=== PATIENT | male | born 1980 | race Caucasian/White ===

== ENCOUNTER 2022-05-15 19:03 | Emergency (ER) | payer MEDICAID ==
[2022-05-15 19:26] VITALS: TEMP 99.2
--- NOTE | 2022-05-15 21:32 | US ---
EXAMINATION TYPE: US venous doppler duplex LE LT DATE OF EXAM: 05/15/2022 8:01 PM COMPARISON: NONE CLINICAL HISTORY: redness swelling. Rash and redness to lateral left calf. Pt states there is no pain . No hx of DVT SIDE PERFORMED: Left TECHNIQUE: The lower extremity deep venous system is examined utilizing real time linear array sonog saul with graded compression, doppler sonography and color-flow sonography. VESSELS IMAGED: Common Femoral Vein Deep Femoral Vein Greater Saphenous Vein * Femoral Vein Popliteal Vein Small Saphenous Vein * Proximal Calf Veins (* superficial vessels) Left Leg: Negative for DVT IMPRESSION: No sign of deep vein thrombosis in the left leg.
[2022-05-15] MEDS ORDERED: cefTRIAXone 1,000 MG VIAL (IM USE) IM STA (21:41)
--- NOTE | 2022-05-15 21:44 | ED ---
Extremity Problem HPI - General Chief complaint: Extremity Problem,Nontraumatic Stated complaint: rash left leg Time Seen by Provider: 05/15/22 19:55 Source: patient Mode of arrival: ambulatory Limitations: no limitations - History of Present Illness Initial comments: Patient is a 41-year-old male who presents to the emergency department for swelling and redness of his left leg. He was sent from urgent care. The symptoms started a month ago and have been worsening. Patient reports redness over his left lower leg which has been experiencing over the past month. He reports minimal pain. It is not itchy/ He does not recall any bug bites or scratches. No injury. He denies fever, chills, nausea, vomiting. Denies history of DVT and PE. Patient does work for [employer] which requires a lot of driving on a daily basis. He is also a tobacco user. Denies hormone replacement, airplane travel, surgical interventions, known cancers, family history of clotting. - Related Data Previous Rx's Medication Instructions Recorded Cephalexin [Keflex] 500 mg PO Q6HR #40 cap 05/15/22 Allergies Allergy/AdvReac Type Severity Reaction Status Date / Time No Known Allergies Allergy Verified 05/15/22 19:26 Review of Systems ROS Statement: Those systems with pertinent positive or pertinent negative responses have been documented in the HPI. ROS Other: All systems not noted in ROS Statement are negative. Past Medical History Past Medical History: No Reported History History of Any Multi-Drug Resistant Organisms: None Reported Past Surgical History: No Surgical Hx Reported Past Psychological History: No Psychological Hx Reported Smoking Status: Current every day smoker Past Alcohol Use History: None Reported Past Drug Use History: Marijuana General Exam Limitations: no limitations General appearance: alert, in no apparent distress Head exam: Present: atraumatic, normocephalic, normal inspection Respiratory exam: Present: normal lung sounds bilaterally. Absent: respiratory distress, wheezes, rales, rhonchi, stridor Cardiovascular Exam: Present: regular rate, normal rhythm, normal heart sounds. Absent: systolic murmur, diastolic murmur, rubs, gallop, clicks Extremities exam: Present: full ROM, normal capillary refill, other (Erythema, warmth, and blanching over the left lateral leg just distal to knee and proximal to ankle. Full range of motion. Neurovascular intact). Absent: calf tenderness Course Vital Signs 05/15/22 05/15/22 19:22 21:00 Temperature 99.2 F Pulse Rate 100 76 Respiratory 20 18 Rate Blood Pressure 164/102 131/84 O2 Sat by Pulse 98 99 Oximetry Medical Decision Making - Medical Decision Making Was pt. sent in by a medical professional or institution ([facility], [facility], urgent care, hospital, or group home...) When possible be specific @ -[No] Did you speak to anyone other than the patient for history (EMS, parent, family, police, friend...)? What history was obtained from this source @ -[No] Did you review nursing and triage notes (agree or disagree)? Why? @ -[I reviewed and agree with nursing and triage notes] Were old charts reviewed (outside hosp., previous admission, EMS record, old EKG, old radiological studies, urgent care reports/EKG's, group home records)? Report findings @ -[No old charts were reviewed] Differential Diagnosis (chest pain, altered mental status, abdominal pain women, abdominal pain men, vaginal bleeding, weakness, fever, dyspnea, syncope, headache, dizziness, GI bleed, back pain, seizure, CVA, palpatations, mental health)? @ -DVT, cellulitis, contact dermatitis EKG interpreted by me (3pts min.). @ -[As above] X-rays interpreted by me (1pt min.). @ -[None done] CT interpreted by me (1pt min.). @ -[None done] U/S interpreted by me (1pt. min.). @ -No. Ultrasound report is negative for DVT. What testing was considered but not performed or refused? (CT, X-rays, U/S, labs)? Why? @ -[None] What meds were considered but not given or refused? Why? @ -Considered pain medication however patient does not want them. Did you discuss the management of the patient with other professionals (chris severino i.e. [facility]ters, [facility], lab, RT, psych nurse, licensed social worker, client project coordinator, teacher, activities officer, case finishing machine adjuster)? Give summary @ -[No] Was smoking cessation discussed for >3mins.? @ -I discussed smoking cessation for greater than 3 minutes. The risk of smoking were discussed with the patient including but not limited to risks of cancer, stroke, coronary artery disease and COPD. Also discussed with patient were multiple methods of quitting smoking. Lastly we discussed the financial cost of smoking. Was critical care preformed (if so, how long)? @ -[No] Were there social determinants of health that impacted care today? How? (Homelessness, low income, unemployed, alcoholism, drug addiction, transportation, low edu. Level, literacy, decrease access to med. care, fdc, rehab)? @ -[No] Was there de-escalation of care discussed even if they declined (Discuss DNR or withdrawal of care, Hospice)? DNR status @ -[No] What co-morbidities impacted this encounter? (DM, HTN, Smoking, COPD, CAD, Cancer, CVA, ARF, Chemo, Hep., AIDS, mental health diagnosis, sleep apnea, morbid obesity)? @ -[None] Was patient admitted / discharged? Hospital course, mention meds given and ro apache, prescriptions, significant lab abnormalities, going to OR and other pertinent info. @ -Patient presenting with erythema and swelling of left leg. Physical exam consistent with cellulitis. There is no fluctuance or drainable abscess. No systemic symptoms. Minimal pain. Ultrasound negative for DVT. Patient will be treated for cellulitis. Rocephin given in the emergency department. Patient will be discharged with Keflex and strict return parameters were discussed. Undiagnosed new problem with uncertain prognosis? @ -[No] Drug Therapy requiring intensive monitoring for toxicity (Heparin, Nitro, Insulin, Cardizem)? @ -[No] Were any procedures done? @ -[No] Diagnosis/symptom? @ -cellulitis LLE Acute, or Chronic, or Acute on Chronic? @ -acute Uncomplicated (without systemic symptoms) or Complicated (systemic symptoms)? @ -uncomplicated Side effects of treatment? @ -[No] Exacerbation, Progression, or Severe Exacerbation? @ -[No] Poses a threat to life or bodily function? How? (Chest pain, [place], [place], pneumonia, PE, COPD, DKA, ARF, appy, cholecystitis, CVA, Diverticulitis, Homicidal, Suicidal, threat to staff... and all critical care pts) @ -[No] Dr. Marti is my attending Disposition Clinical Impression: Cellulitis of left lower extremity Disposition: HOME SELF-CARE Condition: Good Instructions (If sedation given, give patient instructions): Cellulitis (ED) Additional Instructions: Take medication as directed. Follow-up with primary care provider in one to 2 days. Return to the emergency department if you experience new, concerning, or worsening symptoms. Prescriptions: Cephalexin [Keflex] 500 mg PO Q6HR #40 cap Is patient prescribed a controlled substance at d/c from ED?: No Referrals: Arlyn Parra DO [Primary Care Provider] - 1-2 days
[2022-05-15 21:47] VITALS: BP 131/84; PULSE 76; RESP 18
== END 2022-05-15 22:01 | disposition home or self-care (01) ==
LOC: EC 19:03
DX: L03.116 Cellulitis of left lower limb (principal); F12.90 Cannabis use, unspecified, uncomplicated; F17.200 Nicotine dependence, unspecified, uncomplicated
CPT/HCPCS: 93971; 99283; 96372; J0696

== ENCOUNTER 2023-02-19 16:48 | Inpatient (IN) | payer MEDICAID ==
--- NOTE | 2023-02-19 17:28 | ED ---
Chest Pain HPI - General Source: patient Mode of arrival: wheelchair Limitations: no limitations <Milo Mcclain - Last Filed: 02/19/23 17:31> <Malik Kaur - Last Filed: 02/19/23 20:02> - General Chief Complaint: Chest Pain Stated Complaint: chest pain coughing Time Seen by Provider: 02/19/23 17:28 - History of Present Illness Initial Comments: 42-year-old male presenting to the ED with a chief complaint of cough. Patient states for the past month or so has had cough. Reports intermittently with exertion has pain of his lower chest/upper abdomen on the left side. No dizziness or lightheadedness. No nausea or vomiting. States he saw his PCP for this patient had an abnormal ECG and was advised to present to the ED for further evaluation. Currently denies chest pain or shortness of breath. Currently quitting smoking. (Milo Mcclain) This is a 42-year-old male who has progressive dyspnea with exertion over the past one month. He also reports bilateral lower extremity edema which began over the past 4 days. He has no history of heart failure. No cardiac history. He is a current smoker. He denies chest pain. (Malik Kaur) - Related Data Home Medications Medication Instructions Recorded Confirmed Famotidine [Pepcid] 20 mg PO DAILY 02/19/23 02/19/23 Loratadine [Claritin] 10 mg PO DAILY 02/19/23 02/19/23 Allergies Allergy/AdvReac Type Severity Reaction Status Date / Time No Known Allergies Allergy Verified 02/19/23 18:16 Review of Systems ROS Other: All systems not noted in ROS Statement are negative. <Milo Mcclain - Last Filed: 02/19/23 17:31> ROS Other: All systems not noted in ROS Statement are negative. <Malik Kaur - Last Filed: 02/19/23 20:02> ROS Statement: Those systems with pertinent positive or pertinent negative responses have been documented in the HPI. Past Medical History Past Medical History: No Reported History Additional Past Medical History / Comment(s): hx of cellulitis History of Any Multi-Drug Resistant Organisms: None Reported Past Surgical History: No Surgical Hx Reported Past Psychological History: No Psychological Hx Reported Smoking Status: Current every day smoker Past Alcohol Use History: None Reported Past Drug Use History: Marijuana <Milo Mcclain - Last Filed: 02/19/23 17:31> General Exam Limitations: no limitations <Milo Mcclain - Last Filed: 02/19/23 17:31> General appearance: alert Head exam: Present: atraumatic, normocephalic Eye exam: Present: normal appearance, PERRL ENT exam: Present: normal exam Neck exam: Present: normal inspection. Absent: tenderness Respiratory exam: Present: respiratory distress, rales Cardiovascular Exam: Present: normal rhythm, tachycardia GI/Abdominal exam: Present: soft. Absent: distended, tenderness, guarding Extremities exam: Present: pedal edema (2+) Neurological exam: Present: alert, oriented X3 Psychiatric exam: Present: normal affect Skin exam: Present: warm <Malik Kaur - Last Filed: 02/19/23 20:02> - General Exam Comments Initial Comments: Visual Physical Exam Vital signs reviewed General: Well-appearing, nontoxic, no acute distress. Head: Normocephalic, atraumatic Eyes: PERRLA, EOMI ENT: Airway patent Chest: Nonlabored breathing Skin: No visual rash, normal skin tone Neuro: Alert and oriented 3 Musculoskeletal: No gross abnormalities (Milo Mcclain) Course Vital Signs 02/19/23 02/19/23 02/19/23 17:20 17:48 17:57 Temperature 97.7 F Pulse Rate 119 H 120 H Pulse Rate [ 120 H Protohistorian ] Respiratory 20 20 20 Rate Blood Pressure 122/86 O2 Sat by Pulse 98 99 Oximetry 02/19/23 02/19/23 18:00 18:30 Temperature Pulse Rate 125 H 113 H Pulse Rate [ Protohistorian ] Respiratory 20 20 Rate Blood Pressure O2 Sat by Pulse 99 Oximetry Chest Pain MDM <Milo Mcclain - Last Filed: 02/19/23 17:31> <Malik Kaur - Last Filed: 02/19/23 20:02> - MDM Quicknote portion performed. Signed Milo Mcclain PA-C (Milo Mcclain) Was pt. sent in by a medical professional or institution (Dr. PA, UROLOGIST PHYSICIAN, urgent care, hospital, or halfway...) When possible be specific @ -No Did you speak to anyone other than the patient for history (EMS, parent, family, police, friend...)? What history was obtained from this source @ -No Did you review nursing and triage notes (agree or disagree)? Why? @ -I reviewed and agree with nursing and triage notes Were old charts reviewed (outside hosp., previous admission, EMS record, old EKG, old radiological studies, urgent care reports/EKG's, halfway records)? Report findings @ -No old charts were reviewed Differential Diagnosis (chest pain, altered mental status, abdominal pain women, abdominal pain men, vaginal bleeding, weakness, fever, dyspnea, syncope, headache, dizziness, GI bleed, back pain, seizure, CVA, palpatations, mental health, musculoskeletal)? @ -[Differential Dyspnea: Coronary syndrome, arrhythmia, tamponade, asthma, COPD, pulmonary embolism, pneumonia, pneumothorax, pulmonary effusion, anaphylaxis, diabetic ketoacidosis, flailed chest, pulmonary contusion, diaphragmatic rupture, anemia, neuromuscular, this is not meant to be an all-inclusive list. EKG interpreted by me (3pts min.). @EKG, sinus tachycardia rate of 121, left bundle branch block IA interval 136, QRS duration 163, QTC 429, no old for comparison. X-rays interpreted by me (1pt min.). @ -Chest x-ray showing cardiomegaly and pulmonary edema. With effusion. CT interpreted by me (1pt min.). @ -None done U/S interpreted by me (1pt. min.). @ -None done What testing was considered but not performed or refused? (CT, X-rays, U/S, labs)? Why? @ -None What meds were considered but not given or refused? Why? @ -None Did you discuss the management of the patient with other professionals (professionals i.e. , PA, UROLOGIST PHYSICIAN, lab, RT, psych nurse, social service coordinator, teacher dramatics, teacher, air intelligence officer, shoe caser)? Give summary @ -No Was smoking cessation discussed for >3mins.? @ -No Was critical care preformed (if so, how long)? @ -yes, 35 min Were there social determinants of health that impacted care today? How? ( Homelessness, low income, unemployed, alcoholism, drug addiction, transportation, low edu. Level, literacy, decrease access to med. care, longterm, rehab)? @ -Current smoker Was there de-escalation of care discussed even if they declined (Discuss DNR or withdrawal of care, Hospice)? DNR status @ -No What co-morbidities impacted this encounter? (DM, HTN, Smoking, COPD, CAD, Cancer, CVA, ARF, Chemo, Hep., AIDS, mental health diagnosis, sleep apnea, morbid obesity)? @ -None Was patient admitted / discharged? Hospital course, mention meds given and route, prescriptions, significant lab abnormalities, going to OR and other pertinent info. @ -42-year-old male with progressive exertional dyspnea over the past one month and bilateral lower extremity edema. Patient is tachycardic in a left bundle branch block which the patient has no reported history of but he has never had an EKG before. He denies central chest pain. Chest x-ray shows cardiomegaly with new CHF. His BNP is 12,000. Troponin negative. Patient has a positive d- dimer and CT angiography is ordered in the emergency department which is positive for acute PE and CHF. There is also concern for infiltrate and get in the elevated white blood cell count the patient is started on antibiotics in add ition to treatment for CHF and pulmonary embolism. Patient will require echo, consultation with cardiology and pulmonology. He will be admitted to stepdown unit. Case discussed with Kim sanchez for [facility] Undiagnosed new problem with uncertain prognosis? @ -No Drug Therapy requiring intensive monitoring for toxicity (Heparin, Nitro, Insulin, Cardizem)? @ -No Were any procedures done? @ -No Diagnosis/symptom? @ -New-onset CHF, pulmonary embolism Acute, or Chronic, or Acute on Chronic? @ -Acute Uncomplicated (without systemic symptoms) or Complicated (systemic symptoms)? @ -[Complicated Side effects of treatment? @ -No Exacerbation, Progression, or Severe Exacerbation? @ -No Poses a threat to life or bodily function? How? (Chest pain, [place], [place], pneumonia, PE, COPD, DKA, ARF, appy, cholecystitis, CVA, Diverticulitis, Homicidal, Suicidal, threat to staff... and all critical care pts) @Yes, CHF, pulmonary embolism (Malik Kaur) Critical Care Time Critical Care Time: Yes Total Critical Care Time: 35 <Malik Kaur - Last Filed: 02/19/23 20:02> Disposition <Milo Mcclain - Last Filed: 02/19/23 17:31> Is patient prescribed a controlled substance at d/c from ED?: No Time of Disposition: 20:02 <Malik Kaur - Last Filed: 02/19/23 20:02> Clinical Impression: CHF (congestive heart failure), Pulmonary embolism Disposition: ADMITTED IP TO THIS HOSP Condition: Serious Referrals: Arlyn Parra DO [Primary Care Provider] - 1-2 days
[2023-02-19 18:17] LABS: Basophils # (A) 0.1 k/uL (0-0.2); Basophils % (A) 0 %; Eosinophils # (A) 0.1 k/uL (0-0.7); Eosinophils % (A) 1 %; HCT 49.4 % (39.0-53.0); HGB 15.8 gm/dL (13.0-17.5); Lymphocytes # (A) 2.3 k/uL (1.0-4.8); Lymphocytes % (A) 17 %; MCH 30.9 pg (25.0-35.0); MCHC 32.1 g/dL (31.0-37.0); MCV 96.5 fL (80.0-100.0); Mean Platelet Volume 7.7; Monocytes # (A) 0.6 k/uL (0-1.0); Monocytes % (A) 4 %; Neutrophils # (A) 10.6 k/uL (1.3-7.7); Neutrophils % (A) 76 %; Platelet Count 371 k/uL (150-450); RBC 5.12 m/uL (4.30-5.90); WBC 13.9 k/uL (3.8-10.6)
[2023-02-19 18:28] LABS: INR 1.2 (<1.2)
[2023-02-19 18:29] LABS: Prothrombin Time 12.8 sec (10.0-12.5)
[2023-02-19 18:34] LABS: ALT 173 U/L (4-49); AST 85 U/L (17-59); African American GFR (CKD) >90 (>60 ml/min/1.73 sqM); Albumin 3.2 g/dL (3.5-5.0); Alkaline Phosphatase 118 U/L (38-126); Anion Gap 10 mmol/L; Blood Urea Nitrogen 14 mg/dL (9-20); Calcium 8.8 mg/dL (8.4-10.2); Carbon Dioxide 23 mmol/L (22-30); Chloride 99 mmol/L (98-107); Glucose 124 mg/dL (74-99); Magnesium 2.1 mg/dL (1.6-2.3); Non-African American GFR(CKD) >90 (>60 ml/min/1.73 sqM); Potassium 4.3 mmol/L (3.5-5.1); Sodium 132 mmol/L (137-145); Total Bilirubin 1.5 mg/dL (0.2-1.3)
[2023-02-19 18:42] LABS: NT-Pro-B-Type Natriuretic Pept 11900 pg/mL
--- NOTE | 2023-02-19 18:44 | XR ---
EXAMINATION TYPE: XR chest 2V DATE OF EXAM: 02/19/2023 COMPARISON: None INDICATION: Chest pain short of breath TECHNIQUE: Frontal and lateral views of the chest are obtained. FINDINGS: The heart size is enlarged. The pulmonary vasculature is upper limits for normal. Minimal infiltrate may be at the left base. Correlate for atelectasis. Consider atypical pulmonary ed charlie. IMPRESSION: 1. Cardiomegaly with some mild prominence of the pulmonary vascular markings. Correlate for congestiv e heart failure and volume overload.
[2023-02-19] MEDS ORDERED: FUROSEMIDE 10 MG/ML 4 ML VIAL IV STA (18:56)
--- NOTE | 2023-02-19 19:38 | CT ---
EXAMINATION TYPE: CT angio chest CT DLP: 460.2 mGycm, Automated exposure control for dose reduction was used. DATE OF EXAM: 02/19/2023 7:02 PM COMPARISON: None. CLINICAL INDICATION:Male, 42 years old with history of EMMANUEL/POs dimer; chest pain, swollen legs- posit golden dimer TECHNIQUE/CONTRAST: CTA scan of the thorax is performed with IV Contrast, patient injected with 100 mL of Isovue 370, MIP images are created and reviewed these are created on a separate workstation.. FINDINGS: Pulmonary Artery: Main, right and left pulmonary arteries enhance normally. Main pulmonary artery is mildly enlarged at 3.1 cm. No large central/saddle embolus. On the right, the upper and middle lobe a rteries and distal branches show no definite filling defects. Right lower lobe artery is patent. With in anterior basal segmental branch of the right lower lobe, there is a filling defect compatible with acute embolus. On the left, no clear evidence of filling defects however there is some limitation in evaluation of the smaller peripheral branches due to the lung opacities. Heart: Heart appears moderately enlarged with four-chamber enlargement. No pericardial effusion. Vasculature: Aorta appears normal in course and caliber however not well assessed by the phase of con trast. Mediastinum: Enlarged right hilar node with short axis of 1.8 cm. Mildly enlarged left hilar node wit h a short axis of 0.9 cm. Enlarged subcarinal node with a short axis of 1.5 cm. Other borderline enla rged and nonenlarged mediastinal nodes are also seen. There is nonmass-like soft tissue in the anteri or mediastinum, likely residual or reactivated thymic tissue. Airway: Central airways are patent. Lower neck: No significant findings. Soft Tissues: Mild bilateral gynecomastia. Lungs/Pleura: Mild upper lobe emphysematous changes. Moderate left pleural effusion. Left lower lobe consolidative and groundglass opacities, likely combination of edema, atelectasis and infectious infi ltrate. A more focal subpleural consolidative opacity in the lateral left lower lobe measures 2.1 cm image 84. Right upper and middle lobes show no discrete consolidation. Right lower lobe posterolatera lly inferiorly shows an area of peripheral subpleural consolidation which is somewhat rounded in conf iguration and contains an air bronchogram, measuring about 2.7 cm in size, image 158. There is some s urrounding groundglass attenuation. Small infiltrate or atelectasis in the posterior right lower lobe . No sizable right pleural effusion. No visualized pneumothorax. Musculoskeletal: No definite acute bony abnormality. Mild degenerative changes of the thoracic spine. Upper Abdomen: Scarcely included, with no significant findings demonstrated.. IMPRESSION: 1. No large central/saddle embolus. Mildly prominent main pulmonary artery, can be seen with pulmona ry hypertension. 2. Positive for segmental pulmonary embolus in an anterior basal branch of the right lower lobe kong ry. 3. Consolidative opacity in the peripheral right lower lobe, may represent infarct or infectious pro cess. Neoplasm considered less likely. 4. Infiltrates and consolidations in the left lower lobe, likely edema and atelectasis combined with infectious process. 5. Moderate left pleural effusion. 6. Moderate cardiomegaly with four-chamber enlargement.
[2023-02-19] MEDS ORDERED: HEPARIN SODIUM 1,000 UN/ML (10ML VL) IV PRN (19:45)
[2023-02-19] MEDS ORDERED: HEPARIN SODIUM 1,000 UN/ML (10ML VL) IV ONE (19:45)
[2023-02-19] MEDS ORDERED: ASPIRIN 325 MG TAB PO STA (19:46)
[2023-02-19] MEDS ORDERED: AZITHROMYCIN 500 MG in SODIUM CHLORIDE 0.9% 250 ML IVPB STA (19:49)
[2023-02-19] MEDS: HEPARIN SOD,PORK IN 0.45% NACL 25,000 UNIT in 0.45% NACL 1 250ML.BAG IV SCH (19:55)
[2023-02-19] MEDS ORDERED: NALOXONE 0.4 MG/ML 1 ML VIAL IV PRN (19:56)
[2023-02-19] MEDS ORDERED: ACETAMINOPHEN TAB 325 MG TAB PO PRN (19:56)
[2023-02-19 21:24] LABS: Appearance,Urine Clear (Clear); Bilirubin,Urine Negative (Negative); Blood,Urine Negative (Negative); Color,Urine Colorless; Glucose,Urine (UA) Negative (Negative); Ketones,Urine Negative (Negative); Leukocyte Esterase,Urine Negative (Negative); Nitrite,Urine Negative (Negative); Protein,Urine Negative (Negative); Specific Gravity,Urine 1.013 (1.001-1.035); Urobilinogen,Urine <2.0 mg/dL (<2.0)
[2023-02-19] MEDS: FUROSEMIDE 10 MG/ML 2 ML VIAL IV SCH (21:43)
[2023-02-20] MEDS: HEPARIN SOD,PORK IN 0.45% NACL 25,000 UNIT in 0.45% NACL 1 250ML.BAG IV SCH ×2 (06:40→19:56)
--- NOTE | 2023-02-20 06:41 | P.CNPUL ---
History of Present Illness Consult date: 02/20/23 Requesting physician: Malik Kaur Reason for consult: dyspnea, pulmonary embolism Chief complaint: Exertional shortness of breath and left-sided chest pain History of present illness: I am seeing this patient in new consultation today 02/20/2023 after presented yesterday evening with progressively worsening exertional shortness of breath over the last month or so and exertional left-sided chest pain. Patient is a 42-year-old white male with limited past medical history. He does have chronic ongoing tobacco dependence, smoking approximately 1 pack per day. Patient states that over the last 4-6 weeks he has been short of breath with exertion. He feels this started after being exposed to a propane leak at work. The shortness of breath progressively worsened. He also admits bilateral lower extremity swelling over the last 3-5 days. He's had left lateral chest pain that worsens with exertion and improves with rest. He did go to his primary care provider, a nurse practitioner out of Dr. Carlson's office, who directed him to the emergency room yesterday evening. Chest x-ray was consistent with congestive heart failure. A follow-up chest CTA was positive for a segmental pulmonary embolism in the anterior basal branch of the right lower lobe. No central pulmonary embolism. Moderate cardiomegaly. There are enlarged mediastinal/hilar lymph nodes measuring up to 1.8 cm. There is a circular consolidative opacity in the peripheral right lower lobe with air bronchogram, which could represent infarct or infectious process. On the left, there is a moderate sized left pleural effusion and associated atelectasis. Possible superimposed infectious infiltrate involving the left lower lobe. Patient is currently lying in bed, on room air, in no acute distress. Denies infectious symptoms such as fever/chills, productive cough, hemoptysis. Does admit occasional dry cough. Patient denies any current chest pain. Previously described chest pain was localized to the left lateral chest and worsened with exertion. Denies any right-sided chest pain. Denies any personal or familial history of pulmonary embolism. Denies any prolonged travel, trauma, recent surgery. He does have significant bilateral lower extremity edema. Venous Doppler of the left lower extremity negative. High intensity heparin is currently infusing per protocol. Most recent PTT is slightly supratherapeutic. Troponins mildly elevated at 0.042 and 0.044. EKG on arrival showed sinus tachyc ardia with a left bundle branch block. No prior EKG for comparison. NT proBNP was elevated at 11,900. Patient started on Lasix 20 mg twice a day. Patient states that he is urinating often. BMP unremarkable. CBC shows some mild leukocytosis with a WBC count of 13.9, hemoglobin 15.8, hematocrit 49.4 platelets 371. Afebrile. Empirically started on antibiotics. Influenza, RSV, COVID-19 negative. Patient remains slightly tachycardic. Vital signs are stable. Review of Systems REVIEW OF SYSTEMS: CONSTITUTIONAL: Denies any recent significant weight loss or weight gain. EYES: Denies change in vision. EARS, NOSE, MOUTH, THROAT: Denies headaches, denies sore throat. CARDIOVASCULAR: Denies palpitations or syncopal episodes. Admits exertional l eft-sided chest pain and increased lower extremity swelling RESPIRATORY: See HPI GASTROINTESTINAL: Denies change in appetite, abdominal pain, nausea and vomiting, or diarrhea GENITOURINARY: Denies hematuria, denies infections. MUSKULOSKELETAL: Denies pain, denies swelling. INTEGUMENTARY: Denies rash, denies eczema. NEUROLOGICAL: Denies recent memory loss, no recent seizure activity. PSYCHIATRIC: Denies anxiety, denies depression. HEMATOLOGIC/LYMPHATIC: Denies anemia, denies enlarged lymph node Past Medical History Past Medical History: No Reported History Additional Past Medical History / Comment(s): hx of cellulitis History of Any Multi-Drug Resistant Organisms: None Reported Past Surgical History: No Surgical Hx Reported Past Anesthesia/Blood Transfusion Reactions: No Reported Reaction Additional Past Anesthesia/Blood Transfusion Reaction / Comment(s): No hx of anesthesia use Past Psychological History: No Psychological Hx Reported Smoking Status: Current every day smoker Past Alcohol Use History: Occasional Additional Past Alcohol Use History / Comment(s): Pt states drinking is social. Past Drug Use History: Marijuana Medications and Allergies Home Medications Medication Instructions Recorded Confirmed Type Famotidine [Pepcid] 20 mg PO DAILY 02/19/23 02/19/23 History Loratadine [Claritin] 10 mg PO DAILY 02/19/23 02/19/23 History Allergies Allergy/AdvReac Type Severity Reaction Status Date / Time No Known Allergies Allergy Verified 02/19/23 18:16 Physical Exam Vitals: Vital Signs Temp Pulse Pulse Resp BP BP Pulse Ox 02/20/23 01:13 102 H 16 02/20/23 00:00 102 H 16 103/70 98 02/19/23 21:30 98.1 F 107 H 18 115/83 99 02/19/23 21:00 106 H 25 H 116/80 98 02/19/23 20:30 112 H 22 98 02/19/23 20:00 117 H 98 02/19/23 19:30 116 H 23 99 02/19/23 19:00 120 H 99 02/19/23 18:30 113 H 20 99 02/19/23 18:00 125 H 20 02/19/23 17:57 120 H 20 02/19/23 17:48 120 H 20 99 02/19/23 17:20 97.7 F 119 H 20 122/86 98 Intake and Output 02/19/23 02/19/23 02/20/23 14:59 22:59 06:59 Intake Total 113.282 Output Total 1000 Balance -1000 113.282 Intake: Intake, IV Titration 113.282 Amount Heparin Sod,Pork in 0.45% 113.282 NaCl 25,000 unit In 0.45 % NaCl 1 250ml.bag @ 18 UNITS/KG/HR 18.37 mls/hr IV .[id number] [facility] Rx#: [id number] Output: Urine 1000 Other: Voiding Method Urinal Weight 102.058 kg GENERAL EXAM: Alert, 42-year-old white male, comfortable in no apparent distress. HEAD: Normocephalic and atraumatic EYES: Normal reaction of pupils, equal size. NOSE: Clear with pink turbinates. THROAT: No erythema or exudates. NECK: No masses, no JVD. CHEST: No chest wall deformity. LUNGS: Equal air entry with bibasilar inspiratory crackles. On room air.. No conversational dyspnea or accessory muscle use.. CVS: S1 and S2 normal with no audible murmur, regular rhythm. No extra heart sounds ABDOMEN: No hepatosplenomegaly, active bowel sounds, no guarding or rigidity. SPINE: No scoliosis or deformity SKIN: No rashes CENTRAL NERVOUS SYSTEM: No focal deficits, tone is normal in all 4 extremities. EXTREMITIES: There is 3+ bilateral lower extremity pitting edema. No clubbing, or cyanosis. Peripheral pulses are intact. Results - Laboratory Findings CBC and BMP: 02/19/23 17:44 02/19/23 17:44 PT/INR, D-dimer PT 12.8 sec (10.0-12.5) H 02/19/23 17:44 INR 1.2 (<1.2) H 02/19/23 17:44 D-Dimer 2.32 mg/L FEU (<0.60) H 02/19/23 17:44 Abnormal lab findings: Abnormal Labs 02/19/23 02/19/23 02/19/23 17:44 17:44 17:44 WBC 13.9 H Neutrophils # 10.6 H PT 12.8 H INR 1.2 H APTT D-Dimer 2.32 H Sodium 132 L Glucose 124 H Total Bilirubin 1.5 H AST 85 H ALT 173 H Troponin I Total Protein 6.0 L Albumin 3.2 L 02/19/23 02/20/23 02/20/23 20:40 01:31 01:31 WBC Neutrophils # PT INR APTT 83.3 H D-Dimer Sodium Glucose Total Bilirubin AST ALT Troponin I 0.042 H* 0.044 H* Total Protein Albumin - Diagnostic Findings Chest x-ray: image reviewed CT scan - chest: image reviewed Assessment and Plan Assessment: Acute dyspnea, likely multifactorial, related to a combination of congestive heart failure, unknown type, and right segmental pulmonary embolism. Pulmonary embolism appears unprovoked. Underlying infectious process is not excluded. Moderate left pleural effusion, with associated atelectasis vs infectious infiltrate Elevated troponins, rule out non-ST elevation NM Left bundle branch block, no prior ECG for comparison Leukocytosis Chronic ongoing tobacco dependence, smokes approximately 1 pack per day Plan: Patient's medications, labs, imaging reviewed Currently on room air and hemodynamically stable. Patient has been started on high intensity heparin per protocol. No obvious provocative cause of pulmonary embolism, would likely require lifelong anticoagulation. Echocardiogram is pending. Currently receiving Lasix 20 mg twice a day. Gamaliel t reports adequate diuresis. Patient is covered empirically on antibiotics. Procalcitonin level pending. Negative for influenza, RSV, COVID-19 Smoking cessation counseling performed We will continue to follow, and further recommendations are forthcoming I have personally seen and examined the patient, performed the documentation and the assessment and plan as written. Number of minutes spent on the visit:20 Time with Patient: Greater than 30
[2023-02-20 08:14] LABS: Basophils # (A) 0.1 k/uL (0-0.2); Basophils % (A) 1 %; Eosinophils # (A) 0.1 k/uL (0-0.7); Eosinophils % (A) 1 %; HCT 43.6 % (39.0-53.0); HGB 14.4 gm/dL (13.0-17.5); Lymphocytes # (A) 2.1 k/uL (1.0-4.8); Lymphocytes % (A) 19 %; MCH 31.6 pg (25.0-35.0); MCV 95.7 fL (80.0-100.0); Mean Platelet Volume 7.3; Monocytes # (A) 0.6 k/uL (0-1.0); Monocytes % (A) 5 %; Neutrophils % (A) 73 %; Platelet Count 308 k/uL (150-450); RBC 4.56 m/uL (4.30-5.90); WBC 11.1 k/uL (3.8-10.6)
[2023-02-20] MEDS: FAMOTIDINE 20 MG TAB PO SCH (09:40)
[2023-02-20] MEDS: LORATADINE 10 MG TAB PO SCH (09:40)
[2023-02-20] MEDS: FUROSEMIDE 100 MG in SODIUM CHLORIDE 0.9% 90 ML IV SCH ×2 (09:41→17:32)
[2023-02-20] MEDS: FUROSEMIDE 10 MG/ML 2 ML VIAL IV SCH (10:13)
--- NOTE | 2023-02-20 10:40 | CONS ---
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 He came into the hospital because of difficulty breathing and had significant shortness of breath. There is also a small pulmonary embolism, and he has been placed on heparin. For about 5 weeks or so, he has been having progressively increasing shortness of breath. About 5 weeks ago, he was exposed to some propane gas in a closed room and he feels that was the precipitating factor. He smokes quite heavily and is in the process of quitting smoking. He also drinks about 4 beers a day. At the time of my evaluation, he is comfortable, but indicates to me that mild activity makes him quite short of breath. He does not have any chest discomfort. He also noted some edema of lower extremities as well. CT angiogram suggests that there is a branch pulmonary embolism and also possibly some pulmonary infarction as well. Troponin is mildly elevated from 0.02 to 0.04. PAST MEDICAL HISTORY: Unremarkable for any hypertension, diabetes, myocardial infarction, or CVA. MEDICATIONS: At home, he takes Pepcid and Claritin as needed. ALLERGIES: None. PAST SURGICAL HISTORY: No history of any previous surgeries. PHYSICAL EXAMINATION: VITAL SIGNS: Blood pressure is 106/74, pulse rate is about 100. HEENT: Unremarkable. Fundus was not examined by me. NECK: Supple. There is JVD of at least 1 cm or more. There is no carotid bruit. HEART: Reveals S1, S2 with tachycardia. No significant murmurs. LUNGS: Revealed bilateral fine basal rales. ABDOMEN: Soft, nontender. There is mild hepatomegaly. EXTREMITIES: Lower extremities reveal bilateral 1+ edema. Diminished pulses. CENTRAL NERVOUS SYSTEM: No focal deficits. IMPRESSION: 1. Exacerbation of congestive heart failure, systolic. 2. Branch pulmonary embolism with possible pulmonary infarction. 3. Moderate left-sided pleural effusion. 4. EKG reveals sinus tachycardia with left bundle branch block pattern. 5. Cannot exclude cardiomyopathy with heart failure. 6. Alcoholism, 4 beers a day, no hard liquor. RECOMMENDATIONS: I am recommending that we will diurese him with Lasix, replace him on a small dose of beta blockers after unloading, and also place him on a small dose of losartan if his blood pressure tolerates. Continue heparin for the time being, and based on clinical course, I will make further recommendations. I will speak to his when she comes in next 30 minutes or so. He will also require coronary angiography to rule out etiology for his heart failure. I will review the echo that was performed today. Prognosis remains guarded. I discussed my thoughts in detail with the patient. Thank you very much for the consult. VONNIE / LAMBERT: [id number] /
[2023-02-20] MEDS ORDERED: NITROGLYCERIN SL TABS 0.4 MG TAB SUBLINGUAL PRN (11:41)
[2023-02-20] MEDS ORDERED: ALPRAZolam 0.25 MG TAB PO PRN (11:41)
--- NOTE | 2023-02-20 11:47 | CA ---
Transthoracic Echo Report Name: Munir Espino Age: 42 Gender: M : 1980 Exam Date: 02/20/2023 09:27 Exam Location: [facility] Ht (in): 77 Wt (lb): 225 Ordering Physician: Malik Kaur MD Attending/Referring Phys: [id number], Natasha Field Technical Specialist Procedure CPT: Indications: new CHF Cardiac Hx: Technical Quality: Good Contrast 1: Total Dose (mL): Contrast 2: Total Dose (mL): MEASUREMENTS (Male / Female) Normal Values 2D ECHO LV Diastolic Diameter PLAX 6.9 cm 4.2 - 5.9 / 3.9 - 5.3 cm IVS Diastolic Thickness 1.3 cm 0.6 - 1.0 / 0.6 - 0.9 cm LVPW Diastolic Thickness 1.3 cm 0.6 - 1.0 / 0.6 - 0.9 cm LV Relative Wall Thickness 0.4 RV Internal Dim ED PLAX 5.1 cm LVOT Diameter 2.3 cm Aortic Root Diameter 3.0 cm LA Systolic Diameter LX 3.5 cm 3.0 - 4.0 / 2.7 - 3.8 cm LV Diastolic Volume MOD BP 257.5 cm??? 67 - 155 / 56 - 104 cm??? LV Systolic Volume MOD BP 227.4 cm??? / 19 - 49 cm??? LV Ejection Fraction MOD BP 11.7 % >= 55 % LV Cardiac Index MOD BP 1362.4 cm???/min???m??? LV Diastolic Volume MOD 4C 217.9 cm??? LV Systolic Volume MOD 4C 216.2 cm??? LV Ejection Fraction MOD 4C 0.8 % LV Cardiac Index MOD 4C 79.5 cm???/min???m??? LV Diastolic Length 4C 9.9 cm LV Systolic Length 4C 9.6 cm LV Diastolic Volume MOD 2C 304.6 cm??? LV Systolic Volume MOD 2C 245.6 cm??? LV Ejection Fraction MOD 2C 19.3 % LV Cardiac Index MOD 2C 2667.4 cm???/min???m??? LV Diastolic Length 2C 10.0 cm LV Systolic Length 2C 9.6 cm LA Volume 101.9 cm??? - / 22 - 52 cm??? LA Volume Index 43.1 cm???/m??? 16 - 28 cm???/m??? DOPPLER AV Peak Velocity 110.1 cm/s AV Peak Gradient 4.8 mmHg LVOT Peak Velocity 56.2 cm/s LVOT Peak Gradient 1.3 mmHg LVOT Velocity Time Integral 8.7 cm LVOT Stroke Volume 35.1 cm??? LVOT Stroke Volume Index 14.9 ml/m??? LVOT Cardiac Index 1588.3 cm???/min???m??? AV Area Cont Eq pk 2.1 cm??? MV Peak Velocity 155.5 cm/s MV Peak Gradient 9.7 mmHg MV Mean Velocity 58.1 cm/s MV Mean Gradient 1.9 mmHg MV Velocity Time Integral 33.4 cm MR Peak Velocity 419.5 cm/s MR Peak Gradient 70.4 mmHg Mitral E Point Velocity 112.3 cm/s Mitral A Point Velocity 25.2 cm/s Mitral E to A Ratio 4.5 MV Deceleration Time 194.0 ms MV E' Velocity 3.3 cm/s Mitral E to MV E' Ratio 34.5 TR Peak Velocity 333.0 cm/s TR Peak Gradient 44.4 mmHg Right Ventricular Systolic Press 54.4 mmHg PV Peak Velocity 84.9 cm/s PV Peak Gradient 2.9 mmHg FINDINGS Left Ventricle Mildly increased septal wall thickness. Severely increased left ventricular diastolic diameter. Severely increased left ventricular diastolic volume. Severely increased left ventricular systolic volume. Severely decreased left ventricular ejection fraction. Left ventricular ejection fraction is estimated at 10-15 %. Right Ventricle Moderate right ventricular dilatation. RVSP= 54mmHg. Right Atrium Moderate right atrial dilatation. RA area= 22.6cm2 Left Atrium Severely increased left atrial volume. Moderately increased left atrial area. Mitral Valve Structurally normal mitral valve. Moderate MR. Aortic Valve Trileaflet aortic valve. No aortic valve stenosis or regurgitation. Tricuspid Valve Structurally normal tricuspid valve. Moderate TR. Pulmonic Valve Pulmonic valve not well visualized. Mild PI. Pericardium Normal pericardium. Aorta Normal size aortic root. CONCLUSIONS Dilated left ventricle with severe global hypokinesis Moderate mitral and tricuspid regurgitation with moderate to severe pulmonary hypertension Previewed by: Dr. Leena Richards MD (Electronically Signed) Final Date: 20 February 2023 11:45
--- NOTE | 2023-02-20 12:45 | US ---
EXAMINATION TYPE: US venous doppler duplex LE BI DATE OF EXAM: 02/20/2023 10:42 AM COMPARISON: NONE CLINICAL INDICATION: Male, 42 years old with history of PE, LE edema; Edema, known PE SIDE PERFORMED: Bilateral TECHNIQUE: The lower extremity deep venous system is examined utilizing real time linear array sonog saul with graded compression, doppler sonography and color-flow sonography. VESSELS IMAGED: Common Femoral Vein Deep Femoral Vein Greater Saphenous Vein * Femoral Vein Popliteal Vein Small Saphenous Vein * Proximal Calf Veins (* superficial vessels) Right Leg: Negative for DVT Left Leg: Negative for DVT IMPRESSION: No evidence for DVT within the bilateral lower extremities imaged from the groin to the upper calves.
[2023-02-20] MEDS: SODIUM CHLORIDE 0.9% 1,000 ML IV SCH (17:32)
[2023-02-20] MEDS: carvediloL 3.125 MG TAB PO SCH (17:32)
[2023-02-20] MEDS: LOSARTAN 25 MG TAB PO SCH (19:57)
[2023-02-20] MEDS: ALPRAZolam 0.5 MG TAB PO PRN (19:57)
[2023-02-20] MEDS ORDERED: AZITHROMYCIN 500 MG in SODIUM CHLORIDE 0.9% 250 ML IVPB SCH (20:00)
--- NOTE | 2023-02-20 23:38 | P.HPIM ---
History of Present Illness H&P Date: 02/20/23 Chief Complaint: Shortness of breath Patient is a 42-year-old male with no significant past medical history presents to ER with complaints of chest pain and cough. Patient has been having intermittent chest pain with exertion mainly in the left lower pebbled abdomen on the left side. There is also having shortness of breath along with the pain. Patient has been having this exertional symptoms for the past 4 to 6 weeks and also noticed to have increased leg swelling during the past 3 to 5 days. He was seen by his primary care physician and was noted to have abnormal EKG. Advised the patient to go to ER. Patient has not been on follow-up with PCP recently. He is trying to quit smoking. Chest x-ray showed cardiomegaly with some mild prominence of pulmonary vascular markings. Correlate for CHF and volume overload. CT angiogram of the chest showed no large central/saddle embolus. Positive for segmental PE in the anterior basal branch of the right lower lobe artery. Consolidative opacity in the peripheral lower lobe manage present at infarct infectious process. Moderate left pleural effusion and moderate cardiomegaly with four-chamber enlargement. EKG showed sinus tachycardia and left bundle branch block. Laboratory data showed WBC 13.9 hemoglobin 15.8 and platelets 371 D-dimer 2.32 Sodium 132 potassium 4.3 chloride 99 BUN 14 and creatinine 0.78 and blood sugar is 124 magnesium 2.1 total bili 1.5 AST 85 ALT 173 and alk phos 118 and troponin 0.029, 0.042 and 0.044 proBNP 08073 and albumin 3.2 Urinalysis is negative for infection Influenza A, B, RSV and COVID-19 PCR not detected. Review of Systems Constitutional: Patient denies any fever or chills . no Generalized weakness. Abdomen: Patient denied any nausea or vomiting or abd. pain Cardiovascular: Patient does complain of chest pain and short of breath no palpitations. Positive for leg swelling and Pleuritic chest pain Respiratory: patient does have cough . no sputum production. Positive for shortness of breath Neurologic: Patient denied any numbness or tingling or headache. Musculoskeletal: Patient denies any complaints of joint swelling or deformity. Skin: Negative Psychiatric: Negative Endocrine: No heat or cold intolerance. No recent weight gain. Genitourinary: No dysuria or hematuria. All other 14 point ROS negative except the above Past Medical History Past Medical History: No Reported History Additional Past Medical History / Comment(s): hx of cellulitis History of Any Multi-Drug Resistant Organisms: None Reported Past Surgical History: No Surgical Hx Reported Past Anesthesia/Blood Transfusion Reactions: No Reported Reaction Additional Past Anesthesia/Blood Transfusion Reaction / Comment(s): No hx of anesthesia use Past Psychological History: No Psychological Hx Reported Smoking Status: Current every day smoker Past Alcohol Use History: Occasional Additional Past Alcohol Use History / Comment(s): Pt states drinking is social. Past Drug Use History: Marijuana Medications and Allergies Home Medications Medication Instructions Recorded Confirmed Type Famotidine [Pepcid] 20 mg PO DAILY 02/19/23 02/19/23 History Loratadine [Claritin] 10 mg PO DAILY 02/19/23 02/19/23 History Allergies Allergy/AdvReac Type Severity Reaction Status Date / Time No Known Allergies Allergy Verified 02/19/23 18:16 Physical Exam Vitals: Vital Signs Temp Pulse Pulse Resp BP BP Pulse Ox 02/20/23 08:00 98.2 F 101 H 17 93/67 96 02/20/23 04:00 96 16 106/74 96 02/20/23 01:13 102 H 16 02/20/23 00:00 102 H 16 103/70 98 02/19/23 21:30 98.1 F 107 H 18 115/83 99 02/19/23 21:00 106 H 25 H 116/80 98 02/19/23 20:30 112 H 22 98 02/19/23 20:00 117 H 98 02/19/23 19:30 116 H 23 99 02/19/23 19:00 120 H 99 02/19/23 18:30 113 H 20 99 02/19/23 18:00 125 H 20 02/19/23 17:57 120 H 20 02/19/23 17:48 120 H 20 99 02/19/23 17:20 97.7 F 119 H 20 122/86 98 Intake and Output 02/19/23 02/20/23 02/20/23 22:59 06:59 14:59 Intake Total 188.123 Output Total 1000 700 Balance -1000 -511.877 Intake: Intake, IV Titration 188.123 Amount Heparin Sod,Pork in 0.45% 188.123 NaCl 25,000 unit In 0.45 % NaCl 1 250ml.bag @ 18 UNITS/KG/HR 18.37 mls/hr IV .[id number] [facility] Rx#: [id number] Output: Urine 1000 700 Other: Voiding Method Urinal Weight 102.058 kg 100 kg PHYSICAL EXAMINATION: Patient is lying in the bed comfortably, no acute distress, awake alert and oriented.. HEENT: Normocephalic. Neck is supple. Pupils reactive. Nostrils clear. Oral cavity is moist. Neck reveals no JVD, carotid bruits, or thyromegaly. CHEST EXAMINATION: Trachea is central. Symmetrical expansion. Bibasilar diminished sounds.. CARDIAC: Normal S1, S2 with no gallops. No murmurs ABDOMEN: Soft. Bowel sounds present. Nontender. No organomegaly. No abdominal bruits. Extremities: Bilateral 2+ edema. No clubbing or cyanosis Neurologically awake, alert, oriented x3 with well-coordinated movements. No focal deficits noted Skin: No rash or skin lesions. Psychiatric: Coperative. Nonsuicidal, Musculoskeletal: No joint swelling or deformity. Normal range of motion. Results CBC & Chem 7: 02/20/23 08:02 02/19/23 17:44 Labs: Abnormal Lab Results - Last 24 Hours (Table) 02/19/23 02/19/23 02/19/23 Range/Units 17:44 17:44 17:44 WBC 13.9 H (3.8-10.6) k/uL Neutrophils # 10.6 H (1.3-7.7) k/uL PT 12.8 H (10.0-12.5) sec INR 1.2 H (<1.2) APTT (22.0-30.0) sec D-Dimer 2.32 H (<0.60) mg/L FEU Sodium 132 L (137-145) mmol/L Glucose 124 H (74-99) mg/dL Total Bilirubin 1.5 H (0.2-1.3) mg/dL AST 85 H (17-59) U/L ALT 173 H (4-49) U/L Troponin I (0.000-0.034) ng/mL Total Protein 6.0 L (6.3-8.2) g/dL Albumin 3.2 L (3.5-5.0) g/dL 02/19/23 02/20/2302/20/23 Range/Units 20:40 01:31 01:31 WBC (3.8-10.6) k/uL Neutrophils # (1.3-7.7) k/uL PT (10.0-12.5) sec INR (<1.2) APTT 83.3 H (22.0-30.0) sec D-Dimer (<0.60) mg/L FEU Sodium (137-145) mmol/L Glucose (74-99) mg/dL Total Bilirubin (0.2-1.3) mg/dL AST (17-59) U/L ALT (4-49) U/L Troponin I 0.042 H* 0.044 H* (0.000-0.034) ng/mL Total Protein (6.3-8.2) g/dL Albumin (3.5-5.0) g/dL 02/20/23 02/20/23 Range/Units 08:02 08:02 WBC 11.1 H (3.8-10.6) k/uL Neutrophils # 8.0 H (1.3-7.7) k/uL PT (10.0-12.5) sec INR (<1.2) APTT 55.8 H (22.0-30.0) sec D-Dimer (<0.60) mg/L FEU Sodium (137-145) mmol/L Glucose (74-99) mg/dL Total Bilirubin (0.2-1.3) mg/dL AST (17-59) U/L ALT (4-49) U/L Troponin I (0.000-0.034) ng/mL Total Protein (6.3-8.2) g/dL Albumin (3.5-5.0) g/dL Thrombosis Risk Factor Assmnt - DVT/VTE Prophylaxis DVT/VTE Prophylaxis: Pharmacologic Prophylaxis ordered - Choose All That Apply Any of the Below Risk Factors Present?: Yes Each Factor Represents 1 point: Age 41-60 years, Medical pt on bed rest, Obesity (BMI >25), Swollen legs (current) Each Risk Factor Represents 3 Points: History of DVT/PE Thrombosis Risk Factor Assessment Total Risk Factor Score: 7 Thrombosis Risk Factor Assessment Level: High Risk Assessment and Plan Assessment: Shortness of breath secondary to acute CHF, left pleural effusion and right segmental PE Acute segmental right lower lobe pulm artery PE. Unprovoked. Acute CHF. EF not known. Moderate left pleural effusion with underlying infiltrative process cannot be excluded. Elevated troponin level possible NSTEMI cannot be excluded. Left bundle branch block Ongoing nicotine addiction Alcohol use daily 4 beers GI prophylaxis. Plan: Patient will be continued on telemonitoring. Started on heparin drip. Was given a dose of IV Lasix 40 mg x 1 and currently started on Lasix drip as per cardiology recommendations. Started on aspirin and statins and Coreg and losartan.2D echocardiogram was ordered. Continue pain management. He was given a dose of ceftriaxone and azithromycin. Follow-up procalcitonin level. Pulmonary and cardiology is on board. Continue to follow closely. Time with Patient: Greater than 30
[2023-02-21] MEDS ORDERED: ASPIRIN 325 MG TAB PO ONE (05:00)
[2023-02-21] MEDS ORDERED: ATORVASTATIN 80 MG TAB PO ONE (05:00)
[2023-02-21] MEDS: carvediloL 3.125 MG TAB PO SCH ×2 (05:23→16:41)
[2023-02-21] MEDS: LORATADINE 10 MG TAB PO SCH (06:21)
[2023-02-21] MEDS: FAMOTIDINE 20 MG TAB PO SCH (06:21)
[2023-02-21] MEDS: FUROSEMIDE 100 MG in SODIUM CHLORIDE 0.9% 90 ML IV SCH (06:22)
[2023-02-21] MEDS: HEPARIN SOD,PORK IN 0.45% NACL 25,000 UNIT in 0.45% NACL 1 250ML.BAG IV SCH (06:22)
[2023-02-21] MEDS: SODIUM CHLORIDE 0.9% 1,000 ML IV SCH (06:23)
[2023-02-21] MEDS ORDERED: HEPARIN SODIUM,PORCINE (1 ML) 2,500 UNIT in SODIUM CHLORIDE 0.9% 250 ML IRRIGATION PRN (07:00)
[2023-02-21] MEDS ORDERED: HEPARIN SODIUM,PORCINE 10,000 UNIT in SODIUM CHLORIDE 0.9% 1,000 ML IRRIGATION PRN (07:00)
[2023-02-21 07:02] LABS: African American GFR (CKD) >90 (>60 ml/min/1.73 sqM); Anion Gap 12 mmol/L; Blood Urea Nitrogen 13 mg/dL (9-20); Calcium 8.1 mg/dL (8.4-10.2); Carbon Dioxide 28 mmol/L (22-30); Chloride 92 mmol/L (98-107); Glucose 117 mg/dL (74-99); Magnesium 1.5 mg/dL (1.6-2.3); Non-African American GFR(CKD) >90 (>60 ml/min/1.73 sqM); Sodium 132 mmol/L (137-145)
[2023-02-21 08:05] LABS: Potassium 2.7 mmol/L (3.5-5.1)
[2023-02-21] MEDS ORDERED: Potassium Replacement Protocol 1 EACH MISC MISCELLANE PRN (08:07)
[2023-02-21] MEDS: POTASSIUM CHLORIDE ER 20 MEQ TAB.ER PO SCH ×4 (08:50→20:51)
[2023-02-21] MEDS ORDERED: SODIUM CHLORIDE 0.9% 1,000 ML IV ONE ×2 (10:25)
[2023-02-21] MEDS ORDERED: MIDAZOLAM 2 MG/2 ML VIAL IVP ONE (10:30)
[2023-02-21] MEDS ORDERED: LIDOCAINE 1% INJ 10MG/ML (5 ML VIAL-PF) SQ ONE (10:34)
[2023-02-21] MEDS ORDERED: IOPAMIDOL-370 100ML BTL INJ ONE (11:05)
--- NOTE | 2023-02-21 11:35 | P.PN ---
Subjective Progress Note Date: 02/21/23 Principal diagnosis: Shortness of breath. I am seeing this patient in new consultation today 02/20/2023 after presented yesterday evening with progressively worsening exertional shortness of breath over the last month or so and exertional left-sided chest pain. Patient is a 42-year-old white male with limited past medical history. He does have chronic ongoing tobacco dependence, smoking approximately 1 pack per day. Patient states that over the last 4-6 weeks he has been short of breath with exertion. He feels this started after being exposed to a propane leak at work. The shortness of breath progressively worsened. He also admits bilateral lower extremity swelling over the last 3-5 days. He's had left lateral chest pain that worsens with exertion and improves with rest. He did go to his primary care provider, a nurse practitioner out of Dr. Carlson's office, who directed him to the emergency room yesterday evening. Chest x-ray was consistent with congestive heart failure. A follow-up chest CTA was positive for a segmental pulmonary embolism in the anterior basal branch of the right lower lobe. No central pulmonary embolism. Moderate cardiomegaly. There are enlarged mediastinal/hilar lymph nodes measuring up to 1.8 cm. There is a circular consolidative opacity in the peripheral right lower lobe with air bronchogram, which could represent infarct or infectious process. On the left, there is a moderate sized left pleural effusion and associated atelectasis. Possible superimposed infectious infiltrate involving the left lower lobe. Patient is currently lying in bed, on room air, in no acute distress. Denies infectious symptoms such as fever/chills, productive cough, hemoptysis. Does admit occasional dry cough. Patient denies any current chest pain. Previously described chest pain was localized to the left lateral chest and worsened with exertion. Denies any right-sided chest pain. Denies any personal or familial history of pulmonary embolism. Denies any prolonged travel, trauma, recent surgery. He does have significant bilateral lower extremity edema. Venous Doppler of the left lower extremity negative. High intensity heparin is currently infusing per protocol. Most recent PTT is slightly supratherapeutic. Troponins mildly elevated at 0.042 and 0.044. EKG on arrival showed sinus tachycardia with a left bundle branch block. No prior EKG for comparison. NT proBNP was elevated at 11,900. Patient started on Lasix 20 mg twice a day. Patient states that he is urinating often. BMP unremarkable. CBC shows some mild leukocytosis with a WBC count of 13.9, hemoglobin 15.8, hematocrit 49.4 platelets 371. Afebrile. Empirically started on antibiotics. Influenza, RSV, COVID-19 negative. Patient remains slightly tachycardic. Vital signs are stable. Progress note dated 02/21/2023. 42-year-old male that we saw in consultation, for shortness of breath, and lower extremity edema. The patient on CT angiogram was found to have a small pulmonary embolism, in the right lower lobe. The patient was on IV heparin for that. In addition, an echocardiogram revealed a very low ejection fraction, consistent with cardiomyopathy. The patient is scheduled for cardiac catheterization today. He's currently on room air. Dopplers of the lower extremity were negative. His ejection fraction is estimated to be less than 1 5%. He is getting saline at 50 mL an hour. Laboratory data includes a PTT of 48.2, sodium 132, potassium 2.7, chlorides 92, CO2 28, BUN 13, creatinine 0.81. Calcium is 8.1 with a magnesium of 1.5. Pro-calcitonin level is 0.08. The patient tested negative for influenza A, influenza B, RSV, and coronavirus. Objective - Vital Signs Vital signs: Vital Signs Temp 98.3 F 02/21/23 08:10 Pulse 87 02/21/23 08:10 Resp 17 02/21/23 08:10 BP 102/67 02/21/23 08:10 Pulse Ox 100 02/21/23 08:10 FiO2 Intake & Output 02/20/23 02/21/23 02/21/23 18:59 06:59 18:59 Intake Total 376.5 486.997 122.333 Output Total 1900 4850 Balance -1523.5 -4363.003 122.333 Weight 94 kg Intake: IV 100 Intake, IV Titration 258.5 486.997 22.333 Amount Furosemide 100 mg In 108.5 100 22.333 Sodium Chloride 0.9% 90 ml @ 10 MG/HR 10 mls/hr IV .Q10H [facility] Rx#: [id number] Heparin Sod,Pork in 0.45% 386.997 NaCl 25,000 unit In 0.45 % NaCl 1 250ml.bag @ 18 UNITS/KG/HR 18.37 mls/hr IV .[id number] [facility] Rx#: [id number] Sodium Chloride 0.9% 1, 150 000 ml @ 50 mls/hr IV . Q20H [facility] Rx#:[id number] Oral 118 Output: Urine 1900 4850 Other: Voiding Method Urinal Urinal Urinal # Voids 3 - Exam No acute distress, oriented 3. No respiratory distress. The patient remains on room air. HEENT examination is grossly unremarkable. Mucous membranes are moist. No oral lesions. Neck supple. Full range of motion. No adenopathy thyromegaly or neck vein distention. Cardiovascular examination reveals regular rhythm rate. S1-S2 normal. No S3 or S4. No discernible murmur noted. Heart sounds are distant. Heart rate 87 bpm. Lungs reveal mostly clear breath sounds. Scattered rhonchi. No wheezes or crackles. Room air saturation is 98%. Abdomen soft bowel sounds are heard. No masses or tenderness. Extremities are intact. No cyanosis or clubbing. Trace edema is noted. Skin is without rash or lesion. Neurologic examination is brief but nonfocal. - Labs CBC & Chem 7: 02/20/23 08:02 02/21/23 06:27 Labs: Abnormal Lab Results - Last 24 Hours (Table) 02/21/23 02/21/23 Range/Units 06:27 06:27 APTT 48.2 H (22.0-30.0) sec Sodium 132 L (137-145) mmol/L Potassium 2.7 L* (3.5-5.1) mmol/L Chloride 92 L (98-107) mmol/L Glucose 117 H (74-99) mg/dL Calcium 8.1 L (8.4-10.2) mg/dL Magnesium 1.5 L (1.6-2.3) mg/dL Microbiology - Last 24 Hours (Table) 02/19/23 20:06 Blood Culture - Preliminary Blood 02/19/23 19:50 Blood Culture - Preliminary Blood Assessment and Plan Assessment: Acute dyspnea, likely multifactorial, related to a combination of congestive heart failure, unknown type, and right segmental pulmonary embolism. Pulmonary embolism appears unprovoked. Underlying infectious process is not excluded, but unlikely. Severe cardiomyopathy, with an ejection fraction of less than 15%. Moderate left pleural effusion, with associated atelectasis. Elevated troponins, rule out non-ST elevation [place] Left bundle branch block. Leukocytosis. Chronic ongoing tobacco dependence, smokes approximately 1 pack per day. Plan: Plan dated 02/21/2023. Antibiotics were discontinued, because the patient's pro-calcitonin level was normal. The patient is going for heart catheterization today. Echocardiogram revealed a very low ejection fraction. The patient continues on room air. Labs, x-rays, medications are reviewed. 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 She'll recommendations and suggestions are forthcoming. Prognosis is guarded. Time with Patient: Less than 30
[2023-02-21] MEDS ORDERED: FUROSEMIDE 10 MG/ML 2 ML VIAL IV ONE ×2 (14:00→22:00)
--- NOTE | 2023-02-21 14:24 | P.PN ---
Subjective Progress Note Date: 02/21/23 History of present illness: This is 42-year-old male presented to the hospital due to difficulty breathing shortness of breath found to have small pulmonary embolism and started on heparin drip. He was also found to have significant myopathy with EF of 15%. He underwent cardiac catheterization today that revealed normal coronary arteries. Patient does have a history of smoking and daily alcohol use. Patient has been on IV Lasix gtt and lower extremity edema is better. Patient has had 7 L of urine output. He states his breathing is better today. Physical examination: Gen: This is a 42-year-old male resting bed appears comfortable VS: reviewed HEENT: Head is atraumatic, normocephalic. Pupils equal, round. Sclerae is anicteric. NECK: Supple. No JVD. LUNGS: Diminished. No wheezes or rhonchi. No intercostal retractions. HEART: Regular rate and rhythm. No murmur. ABDOMEN: Soft No tenderness. EXTREMITIES: Minimal pedal edema. No calf tenderness. NEUROLOGICAL: Patient is awake, alert and oriented x3. Assessment: Acute systolic heart failure Branch pulmonary embolism with possible pulmonary infarction Moderate left-sided pleural effusion EKG sinus tachycardia with left bundle branch block pattern Cardiomyopathy of unclear etiology most likely due to alcohol use Daily alcohol use Plan: Continue Lasix drip Transition to oral anticoagulation per pulmonary medicine Patient will require LifeVest at discharge Smoking cessation Strict alcohol cessation Further recommendations to follow based upon clinical course Nurse practitioner note has been reviewed, I agree with documented findings and plan of care. Patient was seen and examined. Objective - Vital Signs Vital signs: Vital Signs Temp 98.3 F 02/21/23 08:10 Pulse 87 02/21/23 08:10 Resp 17 02/21/23 08:10 BP 102/67 02/21/23 08:10 Pulse Ox 100 02/21/23 08:10 FiO2 Intake & Output 02/20/23 02/21/23 02/21/23 18:59 06:59 18:59 Intake Total 376.5 486.997 22.333 Output Total 1900 4850 Balance -1523.5 -4363.003 22.333 Weight 94 kg Intake: Intake, IV Titration 258.5 486.997 22.333 Amount Furosemide 100 mg In 108.5 100 22.333 Sodium Chloride 0.9% 90 ml @ 10 MG/HR 10 mls/hr IV .Q10H [facility] Rx#: [id number] Heparin Sod,Pork in 0.45% 386.997 NaCl 25,000 unit In 0.45 % NaCl 1 250ml.bag @ 18 UNITS/KG/HR 18.37 mls/hr IV .[id number] [facility] Rx#: [id number] Sodium Chloride 0.9% 1, 150 000 ml @ 50 mls/hr IV . Q20H [facility] Rx#:[id number] Oral 118 Output: Urine 1900 4850 Other: Voiding Method Urinal Urinal # Voids 3 - Labs CBC & Chem 7: 02/20/23 08:02 02/21/23 06:27 Labs: Abnormal Lab Results - Last 24 Hours (Table) 02/21/23 02/21/23 Range/Units 06:27 06:27 APTT 48.2 H (22.0-30.0) sec Sodium 132 L (137-145) mmol/L Potassium 2.7 L* (3.5-5.1) mmol/L Chloride 92 L (98-107) mmol/L Glucose 117 H (74-99) mg/dL Calcium 8.1 L (8.4-10.2) mg/dL Magnesium 1.5 L (1.6-2.3) mg/dL Microbiology - Last 24 Hours (Table) 02/19/23 20:06 Blood Culture - Preliminary Blood 02/19/23 19:50 Blood Culture - Preliminary Blood
[2023-02-21 16:30] LABS: ALT 105 U/L (4-49); AST 45 U/L (17-59); African American GFR (CKD) >90 (>60 ml/min/1.73 sqM); Alkaline Phosphatase 106 U/L (38-126); Anion Gap 12 mmol/L; Blood Urea Nitrogen 13 mg/dL (9-20); Calcium 8.3 mg/dL (8.4-10.2); Carbon Dioxide 28 mmol/L (22-30); Chloride 93 mmol/L (98-107); Glucose 122 mg/dL (74-99); Non-African American GFR(CKD) >90 (>60 ml/min/1.73 sqM); Potassium 3.8 mmol/L (3.5-5.1); Sodium 133 mmol/L (137-145); Total Bilirubin 1.3 mg/dL (0.2-1.3); Total Protein 5.8 g/dL (6.3-8.2)
[2023-02-21] MEDS: LOSARTAN 25 MG TAB PO SCH (20:51)
[2023-02-21] MEDS: ALPRAZolam 0.5 MG TAB PO PRN (21:16)
--- NOTE | 2023-02-21 22:02 | CC ---
CARDIAC CATHETERIZATION REPORT PROCEDURES PERFORMED: Left heart catheterization and coronary angiography. PERFORMED BY: Dr. Matthew Naik. ANESTHESIA: Moderate conscious sedation time was 32 minutes. The patient was administered Versed. Oxygen saturation, hemodynamics, and EKG were monitored closely. CLINICAL INFORMATION: Mr. Munir Espino is a 42-year-old gentleman who came in to the hospital with heart failure, had a clinical picture suggestive of nonischemic cardiomyopathy with ejection fraction of about 15%. He also had a pulmonary embolism involving a branch occlusion with some pulmonary infarction type picture. After stabilizing him and diuresing him, he was advised coronary angiography to rule out obstructive coronary disease as a cause of cardiomyopathy. Risks, benefits, and options were discussed with the patient and . They understood all details and wished to proceed with the procedure. PROCEDURE NOTE: Under local anesthesia and strict aseptic precautions, I attempted access from the right radial. The pulse was very feeble and I could not thread the wire. Therefore, I switched over to the right femoral approach. With a micropuncture needle technique, I placed a 6-Tajik introducer in the right femoral artery. Using standard Hannah catheters, I performed coronary angiography and the same right catheter was used to check LV pressure, but LV-gram was not performed. The patient tolerated the procedure well. The sheath was taken out and Angio-Seal device used to secure hemostasis and was sent to the room in stable condition. Findings were discussed with the patient and his . He has no significant obstructive CAD, a right-dominant system, elevated filling pressures and no gradient. CARDIAC CATHETERIZATION FINDINGS: The left ventricular end-diastolic pressure was 25 mmHg without any gradient across the aortic valve. CORONARY ANGIOGRAPHY FINDINGS: Right Coronary Artery: Very dominant vessel, no significant disease, distally bifurcates into a large PLV, relatively smaller PDA, minor irregularities, no significant disease. Left Main Coronary Artery: Short patent vessel, no significant disease. Bifurcates into LAD and circumflex. Left Anterior Descending Coronary Artery: Good caliber vessel extends along the anterior wall, gives off a diagonal branch and small septal branches. No significant disease, minor irregularities. Left Posterior Circumflex Coronary Artery: Nondominant vessel, gives off a single obtuse marginals which again gives small secondary branches, minor irregularities, no significant disease. IMPRESSION: 1. The patient has elevated filling pressures of 25 mmHg. Left ventricular end- diastolic without any gradient across aortic valve. 2. Right dominant system. 3. No significant obstructive CAD. 4. LV gram was not performed. RECOMMENDATIONS: I am recommending that we will pursue medical therapy for CAD, the patient has nonischemic cardiomyopathy. He will be placed on a LifeVest and will continue anti- heart failure medications and discharge him in the next 48 hours if he remains stable without arrhythmia, but we will diurese him further since LV end-diastolic pressures are quite high. Discussed my thoughts in detail with the patient and his , Mora who is a nurse here in the hospital. MMJINGL / IJN: [id number] /
[2023-02-22] MEDS: SODIUM CHLORIDE 0.9% 1,000 ML IV SCH ×2 (05:12→10:07)
[2023-02-22] MEDS: HEPARIN SOD,PORK IN 0.45% NACL 25,000 UNIT in 0.45% NACL 1 250ML.BAG IV SCH (06:47)
[2023-02-22] MEDS: carvediloL 3.125 MG TAB PO SCH ×2 (06:47→16:21)
[2023-02-22] MEDS ORDERED: FUROSEMIDE 100 MG in SODIUM CHLORIDE 0.9% 90 ML IV SCH (09:00)
[2023-02-22] MEDS: POTASSIUM CHLORIDE ER 20 MEQ TAB.ER PO SCH ×5 (09:04→21:48)
[2023-02-22] MEDS: FAMOTIDINE 20 MG TAB PO SCH (09:04)
[2023-02-22] MEDS: LORATADINE 10 MG TAB PO SCH (09:04)
[2023-02-22 09:08] LABS: Basophils % (A) 0 %; Eosinophils # (A) 0.1 k/uL (0-0.7); Eosinophils % (A) 1 %; HCT 41.7 % (39.0-53.0); HGB 13.7 gm/dL (13.0-17.5); Lymphocytes # (A) 2.6 k/uL (1.0-4.8); Lymphocytes % (A) 28 %; MCH 31.1 pg (25.0-35.0); MCHC 32.8 g/dL (31.0-37.0); MCV 94.7 fL (80.0-100.0); Mean Platelet Volume 8.8; Monocytes # (A) 0.9 k/uL (0-1.0); Monocytes % (A) 9 %; Neutrophils # (A) 5.5 k/uL (1.3-7.7); Neutrophils % (A) 60 %; Platelet Count 250 k/uL (150-450); RDW 13.2 % (11.5-15.5); WBC 9.3 k/uL (3.8-10.6)
[2023-02-22 09:16] LABS: ALT 85 U/L (4-49); AST 38 U/L (17-59); African American GFR (CKD) >90 (>60 ml/min/1.73 sqM); Albumin 2.5 g/dL (3.5-5.0); Alkaline Phosphatase 89 U/L (38-126); Anion Gap 9 mmol/L; Blood Urea Nitrogen 12 mg/dL (9-20); Calcium 8.2 mg/dL (8.4-10.2); Carbon Dioxide 29 mmol/L (22-30); Chloride 95 mmol/L (98-107); Glucose 91 mg/dL (74-99); Magnesium 1.9 mg/dL (1.6-2.3); Non-African American GFR(CKD) >90 (>60 ml/min/1.73 sqM); Potassium 3.3 mmol/L (3.5-5.1); Sodium 133 mmol/L (137-145); Total Bilirubin 1.2 mg/dL (0.2-1.3)
[2023-02-22] MEDS ORDERED: APIXABAN 5 MG TAB PO SCH (09:30)
[2023-02-22] MEDS: Apixaban Initiation Dose--VTE 5 MG TAB PO SCH ×2 (09:47→21:48)
[2023-02-22] MEDS: SPIRONOLACTONE 25 MG TAB PO SCH (09:47)
[2023-02-22] MEDS: FUROSEMIDE 10 MG/ML 2 ML VIAL IV SCH ×2 (09:47→21:48)
[2023-02-22] MEDS ORDERED: MAGNESIUM SULFATE-D5W PMX 1 GM in DEXTROSE/WATER 1 100ML.BAG IVPB ONE (12:00)
--- NOTE | 2023-02-22 13:07 | PN ---
PROGRESS NOTE SUBJECTIVE: Mr. Espino is a 42-year-old gentleman with newly diagnosed nonischemic cardiomyopathy, ejection fraction of 15%. He is stable today, feels better. Blood pressure is about 104 systolic. Urine output is fairly decent. Yesterday, he was diuresed quite a bit and became somewhat hypotensive. I am recommending that we resume IV to oral Lasix at 20 mg b.i.d., Aldactone, continue other medications, LifeVest and possible discharge tomorrow. OBJECTIVE: VITALS: Stable. NECK: No JVD. No orthostatic changes. HEART: S1, S2 heard normally. LUNGS: Revealed decent air entry. ABDOMEN: Soft. EXTREMITIES: Lower extremity edema has resolved. The patient does have elevated filling pressures, but he may require higher pressures to help his contractility because of enlarged ventricle. Prognosis remains guarded. Advised to refrain from alcohol and possible discharge tomorrow. MMODL / IJN: [id number] /
--- NOTE | 2023-02-22 14:39 | P.PN ---
Subjective Progress Note Date: 02/22/23 Principal diagnosis: Shortness of breath. I am seeing this patient in new consultation today 02/20/2023 after presented yesterday evening with progressively worsening exertional shortness of breath over the last month or so and exertional left-sided chest pain. Patient is a 42-year-old white male with limited past medical history. He does have chronic ongoing tobacco dependence, smoking approximately 1 pack per day. Patient states that over the last 4-6 weeks he has been short of breath with exertion. He feels this started after being exposed to a propane leak at work. The shortness of breath progressively worsened. He also admits bilateral lower extremity swelling over the last 3-5 days. He's had left lateral chest pain that worsens with exertion and improves with rest. He did go to his primary care provider, a nurse practitioner out of Dr. Carlson's office, who directed him to the emergency room yesterday evening. Chest x-ray was consistent with congestive heart failure. A follow-up chest CTA was positive for a segmental pulmonary embolism in the anterior basal branch of the right lower lobe. No central pulmonary embolism. Moderate cardiomegaly. There are enlarged mediastinal/hilar lymph nodes measuring up to 1.8 cm. There is a circular consolidative opacity in the peripheral right lower lobe with air bronchogram, which could represent infarct or infectious process. On the left, there is a moderate sized left pleural effusion and associated atelectasis. Possible superimposed infectious infiltrate involving the left lower lobe. Patient is currently lying in bed, on room air, in no acute distress. Denies infectious symptoms such as fever/chills, productive cough, hemoptysis. Does admit occasional dry cough. Patient denies any current chest pain. Previously described chest pain was localized to the left lateral chest and worsened with exertion. Denies any right-sided chest pain. Denies any personal or familial history of pulmonary embolism. Denies any prolonged travel, trauma, recent surgery. He does have significant bilateral lower extremity edema. Venous Doppler of the left lower extremity negative. High intensity heparin is currently infusing per protocol. Most recent PTT is slightly supratherapeutic. Troponins mildly elevated at 0.042 and 0.044. EKG on arrival showed sinus tachycardia with a left bundle branch block. No prior EKG for comparison. NT proBNP was elevated at 11,900. Patient started on Lasix 20 mg twice a day. Patient states that he is urinating often. BMP unremarkable. CBC shows some mild leukocytosis with a WBC count of 13.9, hemoglobin 15.8, hematocrit 49.4 platelets 371. Afebrile. Empirically started on antibiotics. Influenza, RSV, COVID-19 negative. Patient remains slightly tachycardic. Vital signs are stable. Progress note dated 02/21/2023. 42-year-old male that we saw in consultation, for shortness of breath, and lower extremity edema. The patient on CT angiogram was found to have a small pulmonary embolism, in the right lower lobe. The patient was on IV heparin for that. In addition, an echocardiogram revealed a very low ejection fraction, consistent with cardiomyopathy. The patient is scheduled for cardiac catheterization today. He's currently on room air. Dopplers of the lower extremity were negative. His ejection fraction is estimated to be less than 1 5%. He is getting saline at 50 mL an hour. Laboratory data includes a PTT of 48.2, sodium 132, potassium 2.7, chlorides 92, CO2 28, BUN 13, creatinine 0.81. Calcium is 8.1 with a magnesium of 1.5. Pro-calcitonin level is 0.08. The patient tested negative for influenza A, influenza B, RSV, and coronavirus. Progress note dated 02/22/2023. 42-year-old male seen in consultation 2 days ago. The patient presented with shortness of breath or lower extremity edema. The patient was discovered to have a significant cardiomyopathy, with an ejection fraction estimated to be less than 15%. Cardiac catheterization revealed no significant obstructive coronary disease. The patient is currently being fitted for a life vest. He is not on any supplemental oxygen. He's not receiving any IV fluids. He'll be treated with medications primarily. White count 9.3, he will 13.7, hematocrit 41.7, platelet count 250,000. Sodium 133, potassium 3.3, chlorides 95, CO2 29, BUN 12, creatinine 0.66. PTT was 56.6. Calcium 8.2. Albumin 2.5. Objective - Vital Signs Vital signs: Vital Signs Temp 98 F 02/22/23 11:30 Pulse 94 02/22/23 11:30 Resp 16 02/22/23 11:30 BP 89/65 02/22/23 11:30 Pulse Ox 96 02/22/23 11:30 FiO2 Intake & Output 02/21/23 02/22/23 02/22/23 18:59 06:59 18:59 Intake Total 662.333 250 Output Total 900 475 Balance -237.667 -225 Weight 95.7 kg Intake: IV 100 Intake, IV Titration 22.333 250 Amount Furosemide 100 mg In 22.333 Sodium Chloride 0.9% 90 ml @ 10 MG/HR 10 mls/hr IV .Q10H [facility] Rx#: [id number] Heparin Sod,Pork in 0.45% 250 NaCl 25,000 unit In 0.45 % NaCl 1 250ml.bag @ 18 UNITS/KG/HR 18.37 mls/hr IV .[id number] [facility] Rx#: [id number] Oral 540 Output: Urine 900 475 Other: Voiding Method Urinal Urinal Urinal # Voids 1 # Bowel Movements 1 - Exam No acute distress, oriented 3. No respiratory distress. The patient remains on room air. HEENT examination is grossly unremarkable. Mucous membranes are moist. No oral lesions. Neck supple. Full range of motion. No adenopathy thyromegaly or neck vein distention. Cardiovascular examination reveals regular rhythm rate. S1-S2 normal. No S3 or S4. No discernible murmur noted. Heart sounds are distant. Heart rate 94 bpm. Lungs reveal mostly clear breath sounds. Scattered rhonchi. No wheezes or crac kles. Room air saturation is 96 %. Abdomen soft bowel sounds are heard. No masses or tenderness. Extremities are intact. No cyanosis or clubbing. Trace edema is noted. Skin is without rash or lesion. Neurologic examination is brief but nonfocal. - Labs CBC & Chem 7: 02/22/23 08:19 02/22/23 08:19 Labs: Abnormal Lab Results - Last 24 Hours (Table) 02/21/23 02/21/23 02/22/23 Range/Units 15:59 20:02 08:19 APTT 41.6 H (22.0-30.0) sec Sodium 133 L 133 L (137-145) mmol/L Potassium 3.3 L (3.5-5.1) mmol/L Chloride 93 L 95 L (98-107) mmol/L Glucose 122 H (74-99) mg/dL Calcium 8.3 L 8.2 L (8.4-10.2) mg/dL ALT 105 H 85 H (4-49) U/L Total Protein 5.8 L 5.0 L (6.3-8.2) g/dL Albumin 3.0 L 2.5 L (3.5-5.0) g/dL 02/22/23 Range/Units 08:19 APTT 56.6 H (22.0-30.0) sec Sodium (137-145) mmol/L Potassium (3.5-5.1) mmol/L Chloride (98-107) mmol/L Glucose (74-99) mg/dL Calcium (8.4-10.2) mg/dL ALT (4-49) U/L Total Protein (6.3-8.2) g/dL Albumin (3.5-5.0) g/dL Microbiology - Last 24 Hours (Table) 02/19/23 20:06 Blood Culture - Preliminary Blood 02/19/23 19:50 Blood Culture - Preliminary Blood Assessment and Plan Assessment: Acute dyspnea, likely multifactorial, related to a combination of congestive heart failure, unknown type, and right segmental pulmonary embolism. Pulmonary embolism appears unprovoked. Underlying infectious process is not excluded, but unlikely. Severe cardiomyopathy, with an ejection fraction of less than 15%. Moderate left pleural effusion, with associated atelectasis. Elevated troponins, rule out non-ST elevation [place] Left bundle branch block. Leukocytosis. Chronic ongoing tobacco dependence, smokes approximately 1 pack per day. Plan: Plan dated 02/21/2023. Antibiotics were discontinued, because the patient's pro-calcitonin level was no rmal. The patient is going for heart catheterization today. Echocardiogram revealed a very low ejection fraction. The patient continues on room air. Labs, x-rays, medications are reviewed. 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 She'll recommendations and suggestions are forthcoming. Prognosis is guarded. Plan dated 02/22/2023. The patient is currently being fitted for a LifeVest. The patient's cardiomyopathy will be treated with primarily medications. The patient is encouraged not to smoke ever again, and to cut out drinking altogether. His cardiomyopathy could be viral, could be related to alcohol. Additional recomm endations and suggestions are forthcoming. Labs, x-rays, medications are reviewed. Prognosis is guarded. Time with Patient: Less than 30
--- NOTE | 2023-02-22 16:02 | CDI ---
Documentation Clarification Form Date: From: Gail Lakhani Phone: [phone] Admit Date: 02/19/2023 07:56:00 PM Patient Name: Munir Espino Visit Number: [id number] Discharge Date: ATTENTION: The Clinical Documentation Specialists (CDI) and [facility] Coding Staff appreciate your assistance in clarifying documentation. Please respond to the clarification below the line at the bottom and electronically sign. The CDI & [facility] Coding staff will review the response and follow-up if needed. Please note: Queries are made part of the Legal Health Record. If you have any questions, please contact the author of this message via ITS. Dr. Sarwat Naik There is documentation of NSTEMI in the progress notes dated Pulmonology Consult Note dated 02/20. Additional clarification is requested. History/Risk Factors: "42-year-old male presenting to the ED with a chief complaint of cough. Patient states for the past month or so has had cough. Reports intermittently with exertion has pain of his lower chest/upper abdomen on the left side." - Per ED Note on 02/19 Clinical Indicators: "Patient has been having intermittent chest pain with exertion mainly in the left lower pebbled abdomen on the left side. There is also having shortness of breath along with the pain" "Chest x-ray showed cardiomegaly with some mild prominence of pulmonary vascular markings. Correlate for CHF and volume overload." "Elevated troponin level possible NSTEMI cannot be excluded." - Per Medical H&P on 02/20 "Cardiac catheterization revealed no significant obstructive coronary disease." - Per Progress Note dated 02/21 "Acute systolic heart failure" - Per Progress Note on 02/21 Treatment: Per Progress Note on 02/21 "Continue Lasix drip Transition to oral anticoagulation per pulmonary medicine Patient will require LifeVest at discharge" Can you please clarify? [ ] NSTEMI type 1 [ ] Type 2 FL due to Acute systolic heart failure [ ] No additional diagnosis/Not clinically significant [ ] Other, please specify [ ] Unable to determ No NSTEMI MTDD
[2023-02-22] MEDS: ALPRAZolam 0.5 MG TAB PO PRN (21:48)
[2023-02-22] MEDS: LOSARTAN 25 MG TAB PO SCH (21:48)
[2023-02-23] MEDS: SODIUM CHLORIDE 0.9% 1,000 ML IV SCH ×2 (00:57→09:14)
[2023-02-23] MEDS: carvediloL 3.125 MG TAB PO SCH (06:32)
[2023-02-23] MEDS: Apixaban Initiation Dose--VTE 5 MG TAB PO SCH (09:36)
[2023-02-23] MEDS: SPIRONOLACTONE 25 MG TAB PO SCH (09:36)
[2023-02-23] MEDS: FAMOTIDINE 20 MG TAB PO SCH (09:36)
[2023-02-23] MEDS: POTASSIUM CHLORIDE ER 20 MEQ TAB.ER PO SCH (09:37)
[2023-02-23] MEDS: LORATADINE 10 MG TAB PO SCH (09:37)
[2023-02-23] MEDS: FUROSEMIDE 10 MG/ML 2 ML VIAL IV SCH (09:37)
[2023-02-23 09:50] LABS: African American GFR (CKD) >90 (>60 ml/min/1.73 sqM); Anion Gap 9 mmol/L; Blood Urea Nitrogen 18 mg/dL (9-20); Calcium 8.2 mg/dL (8.4-10.2); Carbon Dioxide 28 mmol/L (22-30); Chloride 95 mmol/L (98-107); Glucose 89 mg/dL (74-99); Non-African American GFR(CKD) >90 (>60 ml/min/1.73 sqM); Sodium 132 mmol/L (137-145)
[2023-02-23] MEDS ORDERED: Potassium Replacement Protocol 1 EACH MISC MISCELLANE PRN (09:59)
[2023-02-23] MEDS ORDERED: POTASSIUM CHLORIDE ER 20 MEQ TAB.ER PO SCH (10:00)
[2023-02-23 10:55] VITALS: RESP 18; TEMP 97.7
--- NOTE | 2023-02-23 11:01 | PN ---
PROGRESS NOTE SUBJECTIVE: This is a 42-year-old gentleman with a nonischemic cardiomyopathy. He is maintaining sinus rhythm, feels better. He was given a LifeVest yesterday. He is somewhat overwhelmed by it, but seems to be coping well with his helping him. I am putting a Hep-Lock today, increase activity and see how he does. If he does well, he will go home this evening on current medical regimen. Labs are still pending. We will check the labs, increase activity, possible discharge today and I will see him in the office in 1 week. Discharge instructions were given. Limited activity. Avoid any strenuous physical activity and risk for sudden is quite high and the patient is aware of this. OBJECTIVE: HEART: S1 and S2 heard normally. LUNGS: Clear. ABDOMEN: Otherwise unremarkable. EXTREMITIES: Lower extremities, otherwise unremarkable. MMODL / IJN: [id number] /
[2023-02-23 12:12] VITALS: BP 96/62; PULSE 88
--- NOTE | 2023-02-23 14:52 | P.PN ---
Subjective Progress Note Date: 02/23/23 Principal diagnosis: Shortness of breath. I am seeing this patient in new consultation today 02/20/2023 after presented yesterday evening with progressively worsening exertional shortness of breath over the last month or so and exertional left-sided chest pain. Patient is a 42-year-old white male with limited past medical history. He does have chronic ongoing tobacco dependence, smoking approximately 1 pack per day. Patient states that over the last 4-6 weeks he has been short of breath with exertion. He feels this started after being exposed to a propane leak at work. The shortness of breath progressively worsened. He also admits bilateral lower extremity swelling over the last 3-5 days. He's had left lateral chest pain that worsens with exertion and improves with rest. He did go to his primary care provider, a nurse practitioner out of Dr. Carlson's office, who directed him to the emergency room yesterday evening. Chest x-ray was consistent with congestive heart failure. A follow-up chest CTA was positive for a segmental pulmonary embolism in the anterior basal branch of the right lower lobe. No central pulmonary embolism. Moderate cardiomegaly. There are enlarged mediastinal/hilar lymph nodes measuring up to 1.8 cm. There is a circular consolidative opacity in the peripheral right lower lobe with air bronchogram, which could represent infarct or infectious process. On the left, there is a moderate sized left pleural effusion and associated atelectasis. Possible superimposed infectious infiltrate involving the left lower lobe. Patient is currently lying in bed, on room air, in no acute distress. Denies infectious symptoms such as fever/chills, productive cough, hemoptysis. Does admit occasional dry cough. Patient denies any current chest pain. Previously described chest pain was localized to the left lateral chest and worsened with exertion. Denies any right-sided chest pain. Denies any personal or familial history of pulmonary embolism. Denies any prolonged travel, trauma, recent surgery. He does have significant bilateral lower extremity edema. Venous Doppler of the left lower extremity negative. High intensity heparin is currently infusing per protocol. Most recent PTT is slightly supratherapeutic. Troponins mildly elevated at 0.042 and 0.044. EKG on arrival showed sinus tachycardia with a left bundle branch block. No prior EKG for comparison. NT proBNP was elevated at 11,900. Patient started on Lasix 20 mg twice a day. Patient states that he is urinating often. BMP unremarkable. CBC shows some mild leukocytosis with a WBC count of 13.9, hemoglobin 15.8, hematocrit 49.4 platelets 371. Afebrile. Empirically started on antibiotics. Influenza, RSV, COVID-19 negative. Patient remains slightly tachycardic. Vital signs are stable. Progress note dated 02/21/2023. 42-year-old male that we saw in consultation, for shortness of breath, and lower extremity edema. The patient on CT angiogram was found to have a small pulmonary embolism, in the right lower lobe. The patient was on IV heparin for that. In addition, an echocardiogram revealed a very low ejection fraction, consistent with cardiomyopathy. The patient is scheduled for cardiac catheterization today. He's currently on room air. Dopplers of the lower extremity were negative. His ejection fraction is estimated to be less than 1 5%. He is getting saline at 50 mL an hour. Laboratory data includes a PTT of 48.2, sodium 132, potassium 2.7, chlorides 92, CO2 28, BUN 13, creatinine 0.81. Calcium is 8.1 with a magnesium of 1.5. Pro-calcitonin level is 0.08. The patient tested negative for influenza A, influenza B, RSV, and coronavirus. Progress note dated 02/22/2023. 42-year-old male seen in consultation 2 days ago. The patient presented with shortness of breath or lower extremity edema. The patient was discovered to have a significant cardiomyopathy, with an ejection fraction estimated to be less than 15%. Cardiac catheterization revealed no significant obstructive coronary disease. The patient is currently being fitted for a life vest. He is not on any supplemental oxygen. He's not receiving any IV fluids. He'll be treated with medications primarily. White count 9.3, he will 13.7, hematocrit 41.7, platelet count 250,000. Sodium 133, potassium 3.3, chlorides 95, CO2 29, BUN 12, creatinine 0.66. PTT was 56.6. Calcium 8.2. Albumin 2.5. Progress note dated 02/23/2023. 42-year-old male seen in consultation 3 days ago. He came in for shortness of breath and lower extremity edema. He was discovered to have a nonischemic cardiomyopathy. Cardiac catheterization revealed no significant coronary obstruction. His ejection and was less than 15%. Currently, the patient's on room air. Is not receiving any IV fluids. The patient was fitted with a LifeVest yesterday. Labs today include a sodium 132, potassium 4, chlorides 95, CO2 28, anion gap 9, BUN 18, creatinine 0.78. Calcium is 8.2. Objective - Vital Signs Vital signs: Vital Signs Temp 97.7 F 02/23/23 08:00 Pulse 88 02/23/23 11:48 Resp 18 02/23/23 11:48 BP 96/62 02/23/23 11:48 Pulse Ox 98 02/23/23 11:48 FiO2 Intake & Output 02/22/23 02/23/23 02/23/23 18:59 06:59 18:59 Intake Total 120 350 Output Total 250 300 625 Balance -130 -300 -275 Weight 96.2 kg Intake: Oral 120 350 Output: Urine 250 300 625 Other: Voiding Method Urinal Urinal Urinal # Voids 1 1 # Bowel Movements 1 1 - Exam No acute distress, oriented 3. No respiratory distress. The patient remains on room air. HEENT examination is grossly unremarkable. Mucous membranes are moist. No oral lesions. Neck supple. Full range of motion. No adenopathy thyromegaly or neck vein distention. Cardiovascular examination reveals regular rhythm rate. S1-S2 normal. No S3 or S4. No discernible murmur noted. Heart sounds are distant. Heart rate 88 bpm. Lungs reveal mostly clear breath sounds. Scattered rhonchi. No wheezes or crackles. Room air saturation is 98 %. Abdomen soft bowel sounds are heard. No masses or tenderness. Extremities are intact. No cyanosis or clubbing. Trace edema is noted. Skin is without rash or lesion. Neurologic examination is brief but nonfocal. - Labs CBC & Chem 7: 02/22/23 08:19 02/23/23 08:08 Labs: Abnormal Lab Results - Last 24 Hours (Table) 02/23/23 Range/Units 08:08 Sodium 132 L (137-145) mmol/L Chloride 95 L (98-107) mmol/L Calcium 8.2 L (8.4-10.2) mg/dL Microbiology - Last 24 Hours (Table) 02/19/23 20:06 Blood Culture - Preliminary Blood 02/19/23 19:50 Blood Culture - Preliminary Blood Assessment and Plan Assessment: Acute dyspnea, likely multifactorial, related to a combination of congestive heart failure, unknown type, and right segmental pulmonary embolism. Pulmonary embolism appears unprovoked. No evidence of coronary artery obstruction, on cardiac catheterization. Severe cardiomyopathy, with an ejection fraction of less than 15%. Moderate left pleural effusion, with associated atelectasis. Elevated troponins, rule out non-ST elevation DE Left bundle branch block. Leukocytosis. Chronic ongoing tobacco dependence, smokes approximately 1 pack per day. Plan: Plan dated 02/21/2023. Antibiotics were discontinued, because the patient's pro-calcitonin level was normal. The patient is going for heart catheterization today. Echocardiogram revealed a very low ejection fraction. The patient continues on room air. Labs, x-rays, medications are reviewed. 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 She'll recommendations and suggestions are forthcoming. Prognosis is guarded. Plan dated 02/22/2023. The patient is currently being fitted for a LifeVest. The patient's cardiomyopathy will be treated with primarily medications. The patient is encouraged not to smoke ever again, and to cut out drinking altogether. His cardiomyopathy could be viral, could be related to alcohol. Additional r ecommendations and suggestions are forthcoming. Labs, x-rays, medications are reviewed. Prognosis is guarded. Plan dated 02/23/2023. The patient returned to my office after discharge, for complete pulmonary function test. He has been smoking for more than 30 years. The patient should not smoke anymore, and should not drink anymore. His cardiomyopathy may relate to alcohol. Labs, x-rays, and medications are reviewed. The patient was fitted for a LifeVest. His cardiac catheterization revealed no obstruction in his coronary arteries. Prognosis is guarded. We will continue to follow the patient, and make recommendations along the way. Time with Patient: Less than 30
== END 2023-02-23 16:00 | disposition home or self-care (01) | DRG 286 ==
LOC: EC 16:48 → 3SCARD 19:56
PROVIDERS: ADMIT Internal Medicine; ATTEND Internal Medicine
PROC: 4A023N7 Measurement of Cardiac Sampling and Pressure, Left Heart, Percutaneous Approach (ICD-10-PCS; principal; 2023-02-21 10:30)
PROC: B2111ZZ Fluoroscopy of Multiple Coronary Arteries using Low Osmolar Contrast (ICD-10-PCS; principal; 2023-02-21 10:30)
DX: I50.21 Acute systolic (congestive) heart failure (principal); I26.99 Other pulmonary embolism without acute cor pulmonale; I42.8 Other cardiomyopathies; J98.11 Atelectasis; I42.6 Alcoholic cardiomyopathy; F17.210 Nicotine dependence, cigarettes, uncomplicated; F10.20 Alcohol dependence, uncomplicated; I95.9 Hypotension, unspecified; Z77.098 Contact with and (suspected) exposure to other hazardous, chiefly nonmedicinal, chemicals; I44.7 Left bundle-branch block, unspecified; D72.829 Elevated white blood cell count, unspecified; G72.9 Myopathy, unspecified; Z11.52 Encounter for screening for COVID-19; Z79.899 Other long term (current) drug therapy; Z71.6 Tobacco abuse counseling; Z71.41 Alcohol abuse counseling and surveillance of alcoholic
CPT/HCPCS: 36415; 71046; 71275; 80048; 80053; 81003; 83605; 83735; 83880; 84145; 84484; 85025; 85379; 85610; 85730; 87040; 87636; 93005; 93306; 93458; 93970; 96365; 96368; 96375; 99291

== ENCOUNTER → 2023-03-12 | Outpatient (CLI) | payer MEDICAID ==
[2023-03-12 15:22] LABS: Blood Urea Nitrogen 17.6 mg/dL (9.0-27.0); Calcium 8.9 mg/dL (8.7-10.3); Carbon Dioxide 22.8 mmol/L (21.6-31.8); Chloride 108 mmol/L (96-109); Glucose 78 mg/dL (70-110); Potassium 4.8 mmol/L (3.5-5.5); Sodium 142 mmol/L (135-145)
== END | disposition home or self-care (01) ==
LOC: LABWHC1 08:44
PROVIDERS: ATTEND Internal Medicine Interventional Cardiology
DX: I50.9 Heart failure, unspecified (principal)
CPT/HCPCS: 36415; 80048

== ENCOUNTER → 2023-04-16 | Outpatient (CLI) | payer MEDICAID ==
--- NOTE | 2023-04-16 11:39 | CT ---
CTA CHEST EXAMINATION TYPE: CT angio chest DATE OF EXAM: 04/16/2023 INDICATION: PE CT DLP: 654 mGycm, Automated exposure control for dose reduction was used. CONTRAST: Patient injected with 80 mL of Isovue 370. COMPARISON: 02/19/2023 TECHNIQUE: CT of the chest is performed on a spiral scan at 2 mm thick sections. Study is performed with intravenous contrast timed for evaluation for pulmonary embolism. This will limit additional po rtions of the evaluation. 3-D MIP images reconstructed by the technologist are reviewed on the compu ter in the coronal and sagittal planes. FINDINGS: No persistent filling defects are evident to suggest an acute pulmonary embolism.. Right lower lobe p ulmonary embolism not identified No mediastinal or hilar adenopathy enlarged by CT criteria is evident. Multiple scattered small lymp h nodes are present within the mediastinum. The ascending aorta diameter at the level of the main pulmonary artery is 2.9 cm. The main pulmonary artery diameter at the bifurcation is 2.7 cm. Posterior lung densities are present, example image series 5 image 146 these are smaller than compari son. This currently measures 2.2 x 1.7 cm on the right and 1.5 x 2.0 cm on the left. Previous left pl eural effusion has resolved. Limited CT sections were through the upper abdomen. Upper abdomen appears unremarkable. IMPRESSION: 1. No acute or residual pulmonary embolism. 2. Diminished size of densities within the posterior dependent lung bases. 3. Resolution previous left pleural effusion. 4. Multiple small lymph nodes remain present. No enlarged lymphadenopathy is evident.
== END | disposition home or self-care (01) ==
LOC: RADCTMAIN 10:37
PROVIDERS: ATTEND Internal Medicine Critical Care Medicine
DX: J98.4 Other disorders of lung (principal); J90 Pleural effusion, not elsewhere classified; I26.99 Other pulmonary embolism without acute cor pulmonale
CPT/HCPCS: 71275; Q9967

== ENCOUNTER → 2023-05-16 | Outpatient (CLI) | payer MEDICAID ==
[2023-05-16 17:03] LABS: ALT 107 U/L (10-49); AST 49 U/L (14-35); Albumin 4.5 g/dL (3.8-4.9); Albumin/Globulin Ratio 1.67 Ratio (1.60-3.17); Alkaline Phosphatase 78 U/L (41-126); Blood Urea Nitrogen 14.4 mg/dL (9.0-27.0); Calcium 9.9 mg/dL (8.7-10.3); Chloride 102 mmol/L (96-109); Globulin 2.7 g/dL (1.6-3.3); Glucose 86 mg/dL (70-110); NT-Pro-B-Type Natriuretic Pept 1347 pg/mL (0-125); Potassium 4.3 mmol/L (3.5-5.5); Sodium 141 mmol/L (135-145); Total Bilirubin 1.4 mg/dL (0.3-1.2); Total Protein 7.2 g/dL (6.2-8.2)
== END | disposition home or self-care (01) ==
LOC: LABWHC1 11:18
PROVIDERS: ATTEND Internal Medicine
DX: I11.0 Hypertensive heart disease with heart failure (principal); I25.10 Atherosclerotic heart disease of native coronary artery without angina pectoris; I50.21 Acute systolic (congestive) heart failure
CPT/HCPCS: 36415; 80053; 83880

== ENCOUNTER → 2023-09-05 | Outpatient (CLI) | payer MEDICAID ==
[2023-09-05 15:41] LABS: ALT 43 U/L (10-49); AST 28 U/L (14-35); Albumin 4.4 g/dL (3.8-4.9); Albumin/Globulin Ratio 1.69 Ratio (1.60-3.17); Alkaline Phosphatase 80 U/L (41-126); BUN/Creat Ratio 10.67 Ratio (12.00-20.00); Blood Urea Nitrogen 9.6 mg/dL (9.0-27.0); Calcium 9.9 mg/dL (8.7-10.3); Carbon Dioxide 25.2 mmol/L (21.6-31.8); Chloride 106 mmol/L (96-109); Globulin 2.6 g/dL (1.6-3.3); Glucose 74 mg/dL (70-110); Potassium 4.1 mmol/L (3.5-5.5); Sodium 141 mmol/L (135-145)
== END | disposition home or self-care (01) ==
LOC: LABWHC1 09:43
PROVIDERS: ATTEND Nurse Practitioner
DX: I11.0 Hypertensive heart disease with heart failure (principal); I50.20 Unspecified systolic (congestive) heart failure
CPT/HCPCS: 36415; 80053

== ENCOUNTER → 2024-06-09 | Outpatient (CLI) | payer MEDICAID ==
[2024-06-09 21:15] LABS: ALT 31 U/L (10-49); AST 25 U/L (14-35); Albumin 4.5 g/dL (3.8-4.9); Alkaline Phosphatase 84 U/L (41-126); Calcium 9.8 mg/dL (8.7-10.3); Chloride 103 mmol/L (96-109); Glucose 85 mg/dL (70-110); Potassium 4.5 mmol/L (3.5-5.5); Sodium 141 mmol/L (135-145); Total Bilirubin 0.9 mg/dL (0.3-1.2); Total Protein 7.5 g/dL (6.2-8.2)
[2024-06-09 21:36] LABS: NT-Pro-B-Type Natriuretic Pept 406 pg/mL (0-125)
== END | disposition home or self-care (01) ==
LOC: LABWHC1 15:49
PROVIDERS: ATTEND Nurse Practitioner
DX: I50.20 Unspecified systolic (congestive) heart failure (principal)
CPT/HCPCS: 36415; 80053; 83880